=== PATIENT | female | born 1985 | race Caucasian/White ===

== ENCOUNTER 2024-12-18 20:39 | Inpatient (IN) ==
[2024-12-18 21:29] LABS: Hematocrit (blood only) 39.0 % (37.0-47.0); Hemoglobin 13.7 g/dl (12.0-16.0); Immature Granulocytes # (auto) 0.05 K/uL (0.01-0.20); Immature Granulocytes % (auto) 0.4 %; Mean Corpuscular Hemoglobin 38.7 pg (25.0-34.0); Mean Corpuscular Volume 110.2 fL (80.0-100.0); Platelet Count 281 K/uL (130-400); RDW Standard Deviation 83.7 fL (36.4-46.3); Red Blood Count 3.54 M/uL (4.20-5.40); White Blood Count 13.51 K/ul (4.8-10.8)
[2024-12-18 21:50] LABS: Appearance Urine Clear (Clear); Glucose Urine UA Negative (Negative)
[2024-12-18 21:59] LABS: Alanine Aminotransferase 41 U/L (7-52); Albumin Globulin Ratio 0.6 (0.9-2); Alkaline Phosphatase 264 U/L (34-104); Anion Gap 11 (3-11); Bilirubin,Total 1.8 mg/dl (0.2-1.0); Blood Urea Nitrogen < 2 mg/dl (6-23); Calcium 8.7 mg/dl (8.6-10.3); Carbon Dioxide 34 mmol/L (21-32); Chloride 89 mmol/L (98-107); Creatinine Clr Calc Pharmacy 117.4 ml/min; Globulin 4.5 gm/dl (2.5-4.0); Glucose 198 mg/dl (70-99(Fasting)); Lipase 18 U/L (11-82); Potassium 2.9 mmol/L (3.5-5.1); Sodium 134 mmol/L (136-145); Total Protein 7.3 gm/dl (6.0-8.3)
[2024-12-18] MEDS: OPTIRAY 320 100ml IV ONE (22:33)
[2024-12-18 22:36] LABS: Anisocytosis Present; Macrocytosis Present
[2024-12-18 22:46] LABS: Magnesium 1.7 mg/dl (1.7-2.4)
[2024-12-18] MEDS: POTASSIUM CHLORIDE / WTR 10 MEQ/100 ML PLCT IV SCH (22:46)
[2024-12-18] MEDS: SODIUM CHLORIDE 0.9% 1,000 ML IV ONE (22:46)
[2024-12-18] MEDS: POTASSIUM CHLORIDE CRTAB 20 MEQ TABCR PO STA (22:48)
[2024-12-18] MEDS: DICYCLOMINE HCL 10 MG/ML 2 ML AMP/VIAL IM ONE (22:48)
[2024-12-18] MEDS: FAMOTIDINE 20MG IV PUSH 20 MG/5 ML SYR IV STA (22:51)
[2024-12-18] MEDS: ONDANSETRON INJ 2 MG/ML 2 ML VIAL IV STA (22:59)
--- NOTE | 2024-12-18 23:09 | Emergency Department Note ---
History of Present Illness General Chief complaint: Abdominal Pain Stated complaint: ABD PAIN, DISCOMFORT Time Seen by Provider: 12/18/24 21:56 History of Present Illness Maximum Pain Intensity: 8 This 39-year-old female presents to the ER for abdominal pain, diarrhea and bloody diarrhea. Patient's been seen at other ERs with no clear etiology for her symptoms. Patient denies chest pain, fever, chills, cough, congestion, flulike illness. She is on well water. Patient smokes and drinks alcohol. No history of withdrawal symptoms. Home Medications Medication Instructions Recorded Confirmed Type dextroamphetamine-amphetamine 30 30 mg PO BID 12/18/24 12/18/24 History mg tablet esomeprazole magnesium 40 mg 40 mg PO DAILYBB 12/18/24 12/18/24 History capsule,delayed release ondansetron 4 mg disintegrating 4 mg PO Q8H PRN Nausea 12/18/24 12/18/24 History tablet spironolactone 25 mg tablet 25 mg PO QDD 12/18/24 12/18/24 History Allergies Allergy/AdvReac Type Severity Reaction Status Date / Time morphine Allergy Severe SHORT OF Verified 12/18/24 23:11 BREATH/HIVES latex Allergy Intermediate SKIN Verified 12/18/24 23:11 IRRITATION/RASH azathioprine [From Imuran] AdvReac Severe CAUSED Verified 12/18/24 23:13 PANCREATITIS Past Med/Surg History Problem List (Updated 12/18/24 @ 23:57 by Irlanda Sevilla PA-C) Hypokalemia (Acute) Bloody diarrhea (Acute) Abdominal ascites (Acute) Abdominal pain, acute (Acute) Social History Smoking Status: Current every day smoker Preferred Language: Danish Feels Safe at Home: Yes Review of Systems A total of 10 systems reviewed and were otherwise negative Physical Exam Vital Signs Vital Signs - 24 hr 12/18/24 20:45 12/18/24 21:53 12/18/24 22:00 Temperature 36.5 C Temperature Source Temporal Artery Scan Pulse Rate 123 H 121 H Pulse Rate [Apical] 125 H Pulse Rhythm [Apical] Regular Pulse Strength [Apical] Normal Respiratory Rate 18 28 H 21 Respiratory Effort / Characteristics Non-Labored Spontaneous Non-Labored Spontaneous Respiratory Depth Normal Normal Respiratory Pattern Regular Blood Pressure 141/85 H 132/98 Blood Pressure [Right Arm] 130/93 Blood Pressure Mean 103 110 Blood Pressure Mean [Right Arm] 105 Pulse Oximetry 99 98 96 Oxygen Delivery Method Room Air Room Air Sepsis Recent Fever Within 48 Hours No Sepsis New/Unexplained Change in Mental Status No Sepsis Action Taken by Nursing No Action Required 12/18/24 22:06 12/18/24 22:24 12/18/24 23:06 Temperature Temperature Source Pulse Rate 119 H 109 H 105 H Pulse Rate [Apical] Pulse Rhythm [Apical] Pulse Strength [Apical] Respiratory Rate 18 21 Respiratory Effort / Characteristics Respiratory Depth Respiratory Pattern Blood Pressure 129/84 Blood Pressure [Right Arm] Blood Pressure Mean 99 Blood Pressure Mean [Right Arm] Pulse Oximetry 96 97 Oxygen Delivery Method Sepsis Recent Fever Within 48 Hours Sepsis New/Unexplained Change in Mental Status Sepsis Action Taken by Nursing 12/18/24 23:30 12/19/24 00:03 12/19/24 00:30 Temperature Temperature Source Pulse Rate 105 H 111 H 100 H Pulse Rate [Apical] Pulse Rhythm [Apical] Pulse Strength [Apical] Respiratory Rate 23 17 18 Respiratory Effort / Characteristics Respiratory Depth Respiratory Pattern Blood Pressure 126/87 111/88 Blood Pressure [Right Arm] Blood Pressure Mean 100 95 Blood Pressure Mean [Right Arm] Pulse Oximetry 97 98 95 Oxygen Delivery Method Sepsis Recent Fever Within 48 Hours Sepsis New/Unexplained Change in Mental Status Sepsis Action Taken by Nursing 12/19/24 01:00 Temperature Temperature Source Pulse Rate 112 H Pulse Rate [Apical] Pulse Rhythm [Apical] Pulse Strength [Apical] Respiratory Rate 22 Respiratory Effort / Characteristics Respiratory Depth Respiratory Pattern Blood Pressure 123/88 Blood Pressure [Right Arm] Blood Pressure Mean 99 Blood Pressure Mean [Right Arm] Pulse Oximetry 94 Oxygen Delivery Method Sepsis Recent Fever Within 48 Hours Sepsis New/Unexplained Change in Mental Status Sepsis Action Taken by Nursing VITALS: Vitals are noted on the nurse's note and reviewed by myself. Vital signs stable. GENERAL: Pleasant female with partner present, in no acute distress, nondiaphoretic, well-developed well-nourished. SKIN: Capillary reflex less than 2 seconds. HEENT: Normocephalic. PERRLA. EOMI. Nares patent. Mucous membranes moist. Neck is supple without nuchal rigidity. HEART: Regular rate and rhythm LUNGS: Clear to auscultation bilaterally without wheezes, rales or rhonchi. No retractions or accessory muscle use. ABDOMEN: Positive bowel sounds x 4. Normal tympanic percussion. Soft, distended with positive fluid wave tender to palpation diffusely, without masses or organomegaly. Alvarez sign negative. No guarding or rebound tenderness. no CVA tenderness MUSCULOSKELETAL: No gross musculoskeletal defects. NEURO: Patient was alert and oriented to person place and time. No focal neurological deficits. Course Administered Medications Albumin Human (Albumin 25%) 25 gm in 100 mls @ 50 mls/hr IV ONE ONE Stop: 12/19/24 02:08 Last Admin: 12/19/24 00:42 Dose: 50 mls/hr Documented By: CAROL Magnesium Sulfate/Dextrose (Magnesium Sulfate / D5w) 1 gm in 100 mls @ 50 mls/hr IV Q2H MARTITA Stop: 12/19/24 04:14 Last Admin: 12/19/24 00:41 Dose: 50 mls/hr Documented By: CAROL Discontinued Medications Dicyclomine HCl (Dicyclomine Hcl 10 Mg/Ml 2 Ml Amp/Vial) 20 mg IM NOW ONE Stop: 12/18/24 22:35 Last Admin: 12/18/24 22:48 Dose: 20 mg Documented By: CAROL Fentanyl Citrate (Fentanyl Citrate Pf 100 Mcg/2 Ml Vial) 50 mcg IV NOW STA Stop: 12/18/24 23:56 Last Admin: 12/19/24 00:06 Dose: 50 mcg Documented By: CAROL Potassium Chloride (K Daniel / Wtr) 10 meq in 100 mls @ 100 mls/hr IV Q1H MARTITA Stop: 12/18/24 23:59 Last Admin: 12/19/24 00:41 Dose: 100 mls/hr Documented By: Infusion: 12/18/24 23:53 Dose: Infused Documented By: Admin: 12/18/24 22:46 Dose: 100 mls/hr Documented By: CAROL Sodium Chloride (Nss) 1,000 mls @ 999 mls/hr IV .Q1H1M ONE Stop: 12/18/24 23:00 Last Infusion: 12/18/24 23:53 Dose: Infused Documented By: Admin: 12/18/24 22:46 Dose: 999 mls/hr Documented By: CAROL Famotidine (Pepcid 20mg Iv Push) 20 mg in 5 mls @ 2.5 mls/min IV NOW STA Stop: 12/18/24 22:35 Last Admin: 12/18/24 22:51 Dose: 2.5 mls/min Documented By: CAROL Ceftriaxone Sodium (Rocephin) 2,000 mg in 50 mls @ 100 mls/hr IV NOW STA Stop: 12/18/24 23:40 Last Infusion: 12/19/24 00:53 Dose: Infused Documented By: Admin: 12/18/24 23:57 Dose: 100 mls/hr Documented By: JO Ioversol (Optiray 320 100ml) 93 ml IV ONCE ONE Stop: 12/18/24 22:34 Last Admin: 12/18/24 22:33 Dose: 93 ml Documented By: TEQUILA Ondansetron HCl (Ondansetron Inj 2 Mg/Ml 2 Ml Vial) 4 mg IV NOW STA Stop: 12/18/24 22:35 Last Admin: 12/18/24 22:59 Dose: 4 mg Documented By: CAROL Potassium Chloride (Potassium Chloride Crtab 20 Meq Tabcr) 40 meq PO NOW STA Stop: 12/18/24 22:01 Last Admin: 12/18/24 22:48 Dose: 40 meq Documented By: CAROL Medical Decision Making Medical Records Attestation: I reviewed the patient's medical records. Home Medications Current Medication List: was personally reviewed by me Laboratory Data Attestation: I reviewed the patient's lab results. 12/18/24 21:05 12/18/24 21:05 Lab Results 12/18/24 12/18/24 12/18/24 Range/Units 21:05 21:06 23:49 WBC 13.51 H (4.8-10.8) K/ul RBC 3.54 L (4.20-5.40) M/uL Hgb 13.7 (12.0-16.0) g/dl Hct 39.0 (37.0-47.0) % MCV 110.2 H (80.0-100.0) fL MCH 38.7 H (25.0-34.0) pg MCHC 35.1 (32.0-36.0) g/dL RDW Std Deviation 83.7 H (36.4-46.3) fL RDW Coeff of Amanda 20.6 H (11.5-14.5) % Plt Count 281 (130-400) K/uL MPV 9.9 (9.4-12.4) fL Immature Gran % (Auto) 0.4 % Neut % (Auto) 72.0 % Lymph % (Auto) 18.8 % Dewey % (Auto) 7.6 % Eos % (Auto) 0.7 % Baso % (Auto) 0.5 % Neut # (Auto) 9.72 H (1.40-6.50) K/uL Lymph # (Auto) 2.54 (1.20-3.40) K/uL Dewey # (Auto) 1.03 H (0.11-0.59) K/uL Eos # (Auto) 0.10 (0.00-0.50) K/uL Baso # (Auto) 0.07 (0.00-0.20) K/uL Immature Gran # (Auto) 0.05 (0.01-0.20) K/uL Anisocytosis Present Macrocytosis Present PT 12.8 H (9.0-12.0) Seconds INR 1.2 H (0.9-1.1) Sodium 134 L (136-145) mmol/L Potassium 2.9 L (3.5-5.1) mmol/L Chloride 89 L (98-107) mmol/L Carbon Dioxide 34 H (21-32) mmol/L Anion Gap 11 (3-11) BUN < 2 L (6-23) mg/dl Creatinine 0.55 L (0.6-1.2) mg/dl Est Cr Clr Drug Dosing 117.4 ml/min eGFR 118.76 BUN/Creatinine Ratio TNP Glucose 198 H (70-99(Fasting)) mg/dl Lactate 2.1 H* (0.4-2.0) mmol/L Calcium 8.7 (8.6-10.3) mg/dl Magnesium 1.7 (1.7-2.4) mg/dl Total Bilirubin 1.8 H (0.2-1.0) mg/dl AST 125 H (13-39) U/L ALT 41 (7-52) U/L Alkaline Phosphatase 264 H (34-104) U/L Total Protein 7.3 (6.0-8.3) gm/dl Albumin 2.8 L (3.4-5.0) gm/dl Globulin 4.5 H (2.5-4.0) gm/dl Albumin/Globulin Ratio 0.6 L (0.9-2) Lipase 18 (11-82) U/L Urine Color Yellow Urine Appearance Clear (Clear) Urine pH 6.0 (4.5-7.5) Ur Specific [place] <= 1.005 (1.000-1.030) Urine Protein Negative (Negative) Urine Glucose (UA) Negative (Negative) Urine Ketones Negative (Negative) Urine Blood Negative (Negative) Urine Nitrite Negative (Negative) Urine Bilirubin Negative (Negative) Urine Urobilinogen Negative (Negative) Ur Leukocyte Esterase Negative (Negative) POC Ur Test NEG (NEG) Urine Comment Ethyl Alcohol mg/dL < 10.0 (<10.0) mg/dl Imaging Data Attestation: I personally reviewed and interpreted this imaging study as follows: Radiologist's Impression: Abdomen/Pelvis CT 12/18/24 21:52 Exam(s): CT ABDOMEN + PELVIS With Contrast IV Amt: 93 cc opti 320 EXAM: CT Abdomen and Pelvis With Intravenous Contrast CLINICAL HISTORY: Reason for exam: abd pain; bloating; N/V/D. TECHNIQUE: Axial computed tomography images of the abdomen and pelvis with intravenous contrast. Automated exposure control was utilized for the study. A dose lowering technique was utilized adhering to the principles of ALARA. CONTRAST: Patient received 93 cc opti 320 of IV contrast COMPARISON: No relevant prior studies available. FINDINGS: Lung bases: No consolidation. ABDOMEN: Liver: The liver is enlarged, inhomogeneous and lobulated.. Gallbladder and bile ducts: Gallbladder is distended. No calcified stones. No ductal dilation. Pancreas: No mass. No ductal dilation. Spleen: No splenomegaly. Adrenals: No mass. Kidneys and ureters: No solid mass. No hydronephrosis. Stomach and bowel: There is a small hiatal hernia. The stomach is relatively decompressed. There is air and stool noted in the colon.. PELVIS: Appendix: The appendix is not visualized.. Bladder: Urinary bladder is distended. No bladder calculi are seen.. Reproductive: There is a 3 cm lucency in the left adnexa. ABDOMEN and PELVIS: Intraperitoneal space: No free air. There is a large amount of free fluid in the abdomen and pelvis.. Bones/joints: There are mild degenerative changes in the spine.. Soft tissues: Unremarkable. Vasculature: No abdominal aortic aneurysm. Lymph nodes: No enlarged lymph nodes. IMPRESSION: There is a large amount of ascites present. Liver is enlarged, inhomogeneous and lobulated. This may represent cirrhotic changes. Underlying lesions cannot be excluded on this exam. Further evaluation may be possible with the use of a nonemergent contrast- enhanced MRI. Gallbladder is distended. No calcified gallstones are seen. There is a small hiatal hernia. There is a possible 3 cm left adnexal cyst. Electronically signed by: Tang Cheatham MD 12/18/24 23:30 PM MDM Narrative Prior records/ancillary studies reviewed. Triage Nursing notes reviewed. Additional history obtained from family. The patient's history was concerning for abdominal pain. Differential diagnosis: Etiologies such as SBP, appendicitis, diverticulitis, PUD, biliary pathology, UTI, pancreatitis, obstruction, mesenteric ischemia, aortic pathology, infections, inflammatory bowel disease, renal colic, as well as others were entertained. Physical examination findings: As above. ER treatment provided: An order was placed for continuous cardiac monitoring. The monitor shows a rate of 60-100 with a sinus rhythm per my Independent interpretation. IV fluids, Zofran, Pepcid, Bentyl were ordered Potassium was replaced orally and intravenously Rocephin was ordered for possible SBP as patient was quite tender On reassessment the patient felt better. Diagnostics interpreted by me: ECG: Ordered for low K EKG: Poor baseline, probable U wave in V1 V2, QTc 520, rate of 106. Impression sinus tachycardia U waves in the anterior septal leads independently interpreted by myself The labs Independently Interpreted by myself revealed hypokalemia. Normal magnesium Negative urine, negative hCG Mild leukocytosis Blood cultures pending Imaging studies: Imaging was reviewed and read by radiology Consultation: A consultation was placed with the hospitalist. The case was discussed and diagnostics were reviewed. The patient was evaluated in the ER for further treatment. Exam and history seem consistent with abdominal pain with ascites and an alcoholic with concerns for possible SBP. Patient is quite tender on exam. She did have a white count. She also had bloody diarrhea but has not provided a stool specimen. Patient has never been here before she normally goes to other hospitals near the [facility]. Medicine was consulted and the case was discussed. She will be evaluated for admission.By the evaluation outlined above emergent etiologies such as appendicitis, diverticulitis, PUD, UTI, pancreatitis, obstruction, mesenteric ischemia, aortic pathology, inflammatory bowel disease, renal colic, as well as others were deemed relatively unlikely. The pt informed about the findings as listed above. All questions were answered and pleased with the treatment. The chart was completed utilizing [employer] voice recognition software. Grammatical errors, random word insertions, pronoun errors, and incomplete sentences are an occassional consequence of this system due to software limitations, ambient noise, and hardware issues. Any formal questions or concerns about the content, text, or information contained within the body of this dictation should be directly addressed to the physician assistant store manager operations for clarification. Impression & Plan Abdominal pain, acute, Abdominal ascites, Bloody diarrhea, Hypokalemia Discharge Plan Visit Data Chief Complaint: Abdominal Pain Stated Complaint: ABD PAIN, DISCOMFORT ED Provider: Miriam Kurtz ED Midlevel Provider: Irlanda Sevilla Discharge Problem: Abdominal pain, acute, Abdominal ascites, Bloody diarrhea, Hypokalemia Patient Disposition: Admitted As Inpatient Condition: Good Forms Stand Alone Forms: [employer] Prescriptions Prescriptions: No Action spironolactone 25 mg tablet 25 mg PO QDD Rx Instructions: TAKE WITH FOOD dextroamphetamine-amphetamine 30 mg tablet 30 mg PO BID esomeprazole magnesium 40 mg capsule,delayed release(DR/EC) 40 mg PO DAILYBB ondansetron 4 mg tablet,disintegrating 4 mg PO Q8H PRN (Reason: Nausea) Referrals Referrals: PCP,NO [Physician] -
--- NOTE | 2024-12-18 23:30 | CT Scan Report ---
Exam(s): CT ABDOMEN + PELVIS With Contrast IV Amt: 93 cc opti 320 EXAM: CT Abdomen and Pelvis With Intravenous Contrast CLINICAL HISTORY: Reason for exam: abd pain; bloating; N/V/D. TECHNIQUE: Axial computed tomography images of the abdomen and pelvis with intravenous contrast. Automated exposure control was utilized for the study. A dose lowering technique was utilized adhering to the principles of ALARA. CONTRAST: Patient received 93 cc opti 320 of IV contrast COMPARISON: No relevant prior studies available. FINDINGS: Lung bases: No consolidation. ABDOMEN: Liver: The liver is enlarged, inhomogeneous and lobulated.. Gallbladder and bile ducts: Gallbladder is distended. No calcified stones. No ductal dilation. Pancreas: No mass. No ductal dilation. Spleen: No splenomegaly. Adrenals: No mass. Kidneys and ureters: No solid mass. No hydronephrosis. Stomach and bowel: There is a small hiatal hernia. The stomach is relatively decompressed. There is air and stool noted in the colon.. PELVIS: Appendix: The appendix is not visualized.. Bladder: Urinary bladder is distended. No bladder calculi are seen.. Reproductive: There is a 3 cm lucency in the left adnexa. ABDOMEN and PELVIS: Intraperitoneal space: No free air. There is a large amount of free fluid in the abdomen and pelvis.. Bones/joints: There are mild degenerative changes in the spine.. Soft tissues: Unremarkable. Vasculature: No abdominal aortic aneurysm. Lymph nodes: No enlarged lymph nodes. IMPRESSION: There is a large amount of ascites present. Liver is enlarged, inhomogeneous and lobulated. This may represent cirrhotic changes. Underlying lesions cannot be excluded on this exam. Further evaluation may be possible with the use of a nonemergent contrast- enhanced MRI. Gallbladder is distended. No calcified gallstones are seen. There is a small hiatal hernia. There is a possible 3 cm left adnexal cyst. Electronically signed by: Tang Cheatham MD 12/18/24 23:30 PM
[2024-12-18] MEDS: cefTRIAXone SODIUM 2,000 MG/50 ML BAG IV STA (23:57)
[2024-12-19 00:27] LABS: INR 1.2 (0.9-1.1); Prothrombin Time 12.8 Seconds (9.0-12.0)
[2024-12-19] MEDS: MAGNESIUM SULFATE / D5W 1 GM/100 ML BAG IV SCH (00:41)
[2024-12-19] MEDS: ALBUMIN 25% 25 GM/100 ML VIAL IV ONE (00:42)
--- NOTE | 2024-12-19 02:08 | History & Physical Report ---
Date of Service December 19, 2024 Assessment & Plan (1) Abdominal pain: Plan: Assessment and plan below following discussion of case with ED provider and reviewing patient history/pertinent normal/abnormal diagnostic test results. Abdominal pain Multifactorial SBP, possible sepsis, history alcoholic cirrhosis with some decompensation bloody diarrhea rule out C. difficile hx Crohn's colitis, has not been seen on follow-up by [facility] specialist this year ADHD, mood disorder, at baseline alcohol abuse Hypokalemia secondary to diarrhea Hyperglycemia rule out DM Incidental finding of left adnexal cyst ongoing tobacco abuse Admit to PCU given potential for alcohol withdrawal and possible need for phenobarbital protocol SUDHEER S, DT precautions CS, ceftriaxone, albumin for possible SBP Monitor lactic acid response to albumin Therapeutic and diagnostic paracentesis in a.m. Stool cultures, stool C. difficile Follow H&H, transfuse PRBC if hemoglobin less than 7 and or for symptomatic anemia GI consult re: decompensated cirrhosis, LGIB Replace potassium Check hemoglobin A1c Outpatient [employer] follow-up for left adnexal cyst Nicotine patch as needed DVT prophylaxis. SCDs Re: GI bleed Full code Text document was generated using [employer] voice recognition software. It may contain grammatical or spelling errors. Kindly contact undersigned for clarification of any documentation item in question. History of Present Illness Chief Complaint: Worsening abdominal pain, bloody diarrhea Primary Care Provider: Monserrat Viera PA-C History obtained from patient and records. Medical history significant for Crohn's colitis, alcoholic cirrhosis, pancreatitis, ADHD, mood disorder, alcohol abuse, ongoing tobacco abuse. Recent confinement last month at [facility] for ascites and GI bleed. EGD showed nonbleeding gastric ulcer and portal hypertensive gastropathy. Incomplete paracentesis as per patient. Patient discharged on spironolactone. Patient noncompliant with Lasix prescription due to low potassium concerns as per last PCP note. Patient consulted [facility] ER 2 weeks ago for persistent abdominal pain/distention following discharge from [facility]. CT abdomen pelvis showed enteritis, fatty liver, moderate ascites, and gallbladder distention. Questionable mild thickening of ascending colonic wall. Patient directed to [facility] for evaluation to rule out cholecystitis due to in availability of ultrasound at [facility]. Ultrasound showed cirrhotic liver with small volume ascites. No findings suggestive of acute cholecystitis. Patient discharged home. Worsening achy abdominal discomfort and distention since last week. No fever, no chills. Bloody diarrhea symptoms with bilious emesis. Antibiotic Rx during confinements at [facility] hospital as per patient. Patient denies chest pain, SOB. No OTC NSAID intake. IV ceftriaxone administered at the ER. Medical History as above 2021 colonoscopy active colitis descending colon and sigmoid colon consistent with Crohn's disease. Surgical History : Appendectomy, oviduct fulguration, endometrial ablation, ectopic removal, oophorectomy, tonsillectomy, Family History : Asthma, RA Personal/Social history : Half pack daily, alcohol abuse as per records, currently unemployed Allergies Allergy/AdvReac Type Severity Reaction Status Date / Time morphine Allergy Severe SHORT OF Verified 12/18/24 23:11 BREATH/HIVES latex Allergy Intermediate SKIN Verified 12/18/24 23:11 IRRITATION/RASH azathioprine [From Imuran] AdvReac Severe CAUSED Verified 12/18/24 23:13 PANCREATITIS Home Medications Medication Instructions Recorded Confirmed Type dextroamphetamine-amphetamine 30 30 mg PO BID 12/18/24 12/18/24 History mg tablet esomeprazole magnesium 40 mg 40 mg PO DAILYBB 12/18/24 12/18/24 History capsule,delayed release ondansetron 4 mg disintegrating 4 mg PO Q8H PRN Nausea 12/18/24 12/18/24 History tablet spironolactone 25 mg tablet 25 mg PO QDD 12/18/24 12/18/24 History Past Med/Surg History Problem List (Updated 12/19/24 @ 09:10 by BEAN Smith) Crohn disease Cirrhosis Abdominal pain Hypokalemia (Acute) Bloody diarrhea (Acute) Abdominal ascites (Acute) Abdominal pain, acute (Acute) Social History Smoking Status: Current every day smoker Preferred Language: Vincentian Feels Safe at Home: Yes Review of Systems Review of Systems: As per HPI, all other systems reviewed and negative Physical Exam Physical Exam: GENERAL: uncomfortable, slightly anxious, looks older than stated age, no respiratory distress SKIN: Normal color, warm HEENT: [place] palpebral conjunctivae, no ptosis, dry buccal mucosa NECK : Supple, no tenderness CHEST : Decreased breath sounds, no tenderness HEART : Tachycardic, no obvious murmurs ABDOMEN: Marked abdominal distention, central abdominal tenderness EXTREMITIES : No LE swelling/tenderness, palpable pulses, no other conspicuous deformities noted NEUROLOGIC : Coherent, no facial asymmetry, no other gross focality Results & Data Results & Data Vital Signs (Past 12 Hours) Vital Signs Temp Pulse Pulse Resp BP BP Pulse Ox 12/19/24 01:56 108 H 12/19/24 01:42 108 H 23 102/84 95 12/19/24 01:00 108 H 18 123/88 97 12/19/24 01:00 112 H 22 123/88 94 12/19/24 00:30 100 H 18 111/88 95 12/19/24 00:03 111 H 17 126/87 98 12/18/24 23:30 105 H 23 97 12/18/24 23:06 105 H 21 97 12/18/24 22:24 109 H 18 129/84 96 12/18/24 22:06 119 H 12/18/24 22:00 121 H 21 132/98 96 12/18/24 21:53 125 H 28 H 130/93 98 12/18/24 20:45 36.5 C 123 H 18 141/85 H 99 O2 Del Method 12/19/24 01:56 12/19/24 01:42 12/19/24 01:00 12/19/24 01:00 12/19/24 00:30 12/19/24 00:03 12/18/24 23:30 12/18/24 23:06 12/18/24 22:24 12/18/24 22:06 12/18/24 22:00 12/18/24 21:53 Room Air 12/18/24 20:45 Room Air Laboratory Results Laboratory Results WBC 13.51 K/ul (4.8-10.8) H 12/18/24 21:05 RBC 3.54 M/uL (4.20-5.40) L 12/18/24 21:05 Hgb 13.7 g/dl (12.0-16.0) 12/18/24 21:05 Hct 39.0 % (37.0-47.0) 12/18/24 21:05 MCV 110.2 fL (80.0-100.0) H 12/18/24 21:05 MCH 38.7 pg (25.0-34.0) H 12/18/24 21:05 MCHC 35.1 g/dL (32.0-36.0) 12/18/24 21:05 RDW Std Deviation 83.7 fL (36.4-46.3) H 12/18/24 21:05 RDW Coeff of Amanda 20.6 % (11.5-14.5) H 12/18/24 21:05 Plt Count 281 K/uL (130-400) 12/18/24 21:05 MPV 9.9 fL (9.4-12.4) 12/18/24 21:05 Immature Gran % (Auto) 0.4 % 12/18/24 21:05 Neut % (Auto) 72.0 % 12/18/24 21:05 Lymph % (Auto) 18.8 % 12/18/24 21:05 [place] % (Auto) 7.6 % 12/18/24 21:05 Eos % (Auto) 0.7 % 12/18/24 21:05 Baso % (Auto) 0.5 % 12/18/24 21:05 Neut # (Auto) 9.72 K/uL (1.40-6.50) H 12/18/24 21:05 Lymph # (Auto) 2.54 K/uL (1.20-3.40) 12/18/24 21:05 [place] # (Auto) 1.03 K/uL (0.11-0.59) H 12/18/24 21:05 Eos # (Auto) 0.10 K/uL (0.00-0.50) 12/18/24 21:05 Baso # (Auto) 0.07 K/uL (0.00-0.20) 12/18/24 21:05 Immature Gran # (Auto) 0.05 K/uL (0.01-0.20) 12/18/24 21:05 Anisocytosis Present 12/18/24 21:05 Macrocytosis Present 12/18/24 21:05 PT 12.8 Seconds (9.0-12.0) H 12/18/24 21:05 INR 1.2 (0.9-1.1) H 12/18/24 21:05 Sodium 134 mmol/L (136-145) L 12/18/24 21:05 Potassium 2.9 mmol/L (3.5-5.1) L 12/18/24 21:05 Chloride 89 mmol/L (98-107) L 12/18/24 21:05 Carbon Dioxide 34 mmol/L (21-32) H 12/18/24 21:05 Anion Gap 11 (3-11) 12/18/24 21:05 BUN < 2 mg/dl (6-23) L 12/18/24 21:05 Creatinine 0.55 mg/dl (0.6-1.2) L 12/18/24 21:05 Est Cr Clr Drug Dosing 117.4 ml/min 12/18/24 21:05 eGFR 118.76 12/18/24 21:05 BUN/Creatinine Ratio TNP 12/18/24 21:05 Glucose 198 mg/dl (70-99(Fasting)) H 12/18/24 21:05 Lactate 2.1 mmol/L (0.4-2.0) H* 12/18/24 23:49 Calcium 8.7 mg/dl (8.6-10.3) 12/18/24 21:05 Magnesium 1.7 mg/dl (1.7-2.4) 12/18/24 21:05 Total Bilirubin 1.8 mg/dl (0.2-1.0) H 12/18/24 21:05 AST 125 U/L (13-39) H 12/18/24 21:05 ALT 41 U/L (7-52) 12/18/24 21:05 Alkaline Phosphatase 264 U/L (34-104) H 12/18/24 21:05 Total Protein 7.3 gm/dl (6.0-8.3) 12/18/24 21:05 Albumin 2.8 gm/dl (3.4-5.0) L 12/18/24 21:05 Globulin 4.5 gm/dl (2.5-4.0) H 12/18/24 21:05 Albumin/Globulin Ratio 0.6 (0.9-2) L 12/18/24 21:05 Lipase 18 U/L (11-82) 12/18/24 21:05 Urine Color Yellow 12/18/24 21:05 Urine Appearance Clear (Clear) 12/18/24 21:05 Urine pH 6.0 (4.5-7.5) 12/18/24 21:05 Ur Specific [place] <= 1.005 (1.000-1.030) 12/18/24 21:05 Urine Protein Negative (Negative) 12/18/24 21:05 Urine Glucose (UA) Negative (Negative) 12/18/24 21:05 Urine Ketones Negative (Negative) 12/18/24 21:05 Urine Blood Negative (Negative) 12/18/24 21:05 Urine Nitrite Negative (Negative) 12/18/24 21:05 Urine Bilirubin Negative (Negative) 12/18/24 21:05 Urine Urobilinogen Negative (Negative) 12/18/24 21:05 Ur Leukocyte Esterase Negative (Negative) 12/18/24 21:05 POC Ur Test NEG (NEG) 12/18/24 21:06 Urine Comment 12/18/24 21:05 Ethyl Alcohol mg/dL < 10.0 mg/dl (<10.0) 12/18/24 23:49 Impressions Abdomen/Pelvis CT 12/18/24 21:52 Exam(s): CT ABDOMEN + PELVIS With Contrast IV Amt: 93 cc opti 320 EXAM: CT Abdomen and Pelvis With Intravenous Contrast CLINICAL HISTORY: Reason for exam: abd pain; bloating; N/V/D. TECHNIQUE: Axial computed tomography images of the abdomen and pelvis with intravenous contrast. Automated exposure control was utilized for the study. A dose lowering technique was utilized adhering to the principles of ALARA. CONTRAST: Patient received 93 cc opti 320 of IV contrast COMPARISON: No relevant prior studies available. FINDINGS: Lung bases: No consolidation. ABDOMEN: Liver: The liver is enlarged, inhomogeneous and lobulated.. Gallbladder and bile ducts: Gallbladder is distended. No calcified stones. No ductal dilation. Pancreas: No mass. No ductal dilation. Spleen: No splenomegaly. Adrenals: No mass. Kidneys and ureters: No solid mass. No hydronephrosis. Stomach and bowel: There is a small hiatal hernia. The stomach is relatively decompressed. There is air and stool noted in the colon.. PELVIS: Appendix: The appendix is not visualized.. Bladder: Urinary bladder is distended. No bladder calculi are seen.. Reproductive: There is a 3 cm lucency in the left adnexa. ABDOMEN and PELVIS: Intraperitoneal space: No free air. There is a large amount of free fluid in the abdomen and pelvis.. Bones/joints: There are mild degenerative changes in the spine.. Soft tissues: Unremarkable. Vasculature: No abdominal aortic aneurysm. Lymph nodes: No enlarged lymph nodes. IMPRESSION: There is a large amount of ascites present. Liver is enlarged, inhomogeneous and lobulated. This may represent cirrhotic changes. Underlying lesions cannot be excluded on this exam. Further evaluation may be possible with the use of a nonemergent contrast- enhanced MRI. Gallbladder is distended. No calcified gallstones are seen. There is a small hiatal hernia. There is a possible 3 cm left adnexal cyst. Electronically signed by: Tang Cheatham MD 12/18/24 23:30 PM
[2024-12-19] MEDS ORDERED: ACETAMINOPHEN 500 MG TAB PO PRN (02:43)
[2024-12-19] MEDS ORDERED: PROMETHAZINE 6.25 MG/50.25 ML BAG IV PRN (02:43)
[2024-12-19] MEDS: THIAMINE HCL 100 MG in SYRINGE 9 ML IV STA (02:54)
[2024-12-19] MEDS: FUROSEMIDE INJ 20 MG/2 ML VIAL IV ONE (03:02)
[2024-12-19 05:24] LABS: INR 1.3 (0.9-1.1); Prothrombin Time 13.5 Seconds (9.0-12.0)
[2024-12-19 05:26] LABS: Alanine Aminotransferase 28 U/L (7-52); Albumin Globulin Ratio 0.8 (0.9-2); Alkaline Phosphatase 180 U/L (34-104); Anion Gap 9 (3-11); Bilirubin,Total 1.6 mg/dl (0.2-1.0); Blood Urea Nitrogen < 2 mg/dl (6-23); Calcium 8.0 mg/dl (8.6-10.3); Carbon Dioxide 35 mmol/L (21-32); Chloride 94 mmol/L (98-107); Creatinine Clr Calc Pharmacy 137.4 ml/min; Globulin 3.2 gm/dl (2.5-4.0); Glucose 95 mg/dl (70-99(Fasting)); Potassium 3.0 mmol/L (3.5-5.1); Sodium 138 mmol/L (136-145); Total Protein 5.9 gm/dl (6.0-8.3)
[2024-12-19 06:00] LABS: Hematocrit (blood only) 30.4 % (37.0-47.0); Hemoglobin 10.8 g/dl (12.0-16.0); Mean Corpuscular Hemoglobin 38.3 pg (25.0-34.0); Mean Corpuscular Volume 107.8 fL (80.0-100.0); Platelet Count 202 K/uL (130-400); RDW Standard Deviation 79.2 fL (36.4-46.3); Red Blood Count 2.82 M/uL (4.20-5.40); White Blood Count 10.51 K/ul (4.8-10.8)
[2024-12-19 06:33] LABS: Anisocytosis Present; Immature Granulocytes # (auto) 0.03 K/uL (0.01-0.20); Immature Granulocytes % (auto) 0.3 %; Polychromasia 1+; Target Cells 1+
--- NOTE | 2024-12-19 08:20 | Gastrointestinal Consultation ---
Date of Consultation December 19, 2024 Assessment & Plan (1) Cirrhosis: 39 year old female with history of Crohn's followed by [facility] GI, ETOH induced liver disease followed by [facility] Hepatology, ADHD, HTN, pancreatitis, depression, alcohol use disorder recently admitted at [facility] admitted through the ED w/ decompensated cirrhosis and LGIB. She endorses chronic abd pain, change in bowel habits in September w/ mucous in stools mixed w/ BRB. EGD in November w/ portal hypertensive gastropathy, small non-bleeding gastric ulcer. Colon in 2021 w/ evidence of crohn's disease w/ colonic involvement Cirrhosis - MELD 11 - Ascites - Diagnostic and therapeutic paracentesis - Follow fluid studies - Albumin 25% 25G before and after - Increase Aldactone 50 mg once daily - Monitor K - If able to introduce low dose Lasix again, recommend trial while hospitalized - Follow up with [facility] Hepatology - MELD labs every 6 months - ABD imaging w/ AFP every 6 months - EGD every 1-2 years - No ETOH - No NSAIDs - Avoid hepatotoxin - Low NA diet, less than 2G daily - Less than 2G acetaminophen containing products daily Crohn's disease, change in bowel habits, mucous in stools w/ rectal bleeding - Trend H&H - Check iron studies, ferritin - If deficient, start iron therapy - She was recently referred to an IBD specialist - Recommend stool PCR, c.diff - Fecal calprotectin - Has failed Mesalamine, Imuran, Humira, Avsola I spent a total of 60 minutes on the date of service in review of patient's record, and previously obtained information in person and appropriate medical visit, discussion and education of plan, with patient and/or caregiver, placing orders for tests/referral/procedures as medically necessary and documentation of pertinent clinical information in patient's medical records for their visit today. (2) Crohn disease: Supervising Physician Co-Signing Physician Notes 39 year old female with history of Crohn's followed by [facility] GI, ETOH induced liver disease followed by [facility] GI, ADHD, HTN, pancreatitis, depression, alcohol use disorder recently admitted at [facility] admitted through the ED w/ decompensated cirrhosis and LGIB. GI asked to evaluated. She notes generalized abdominal pain since September. Associated with change in bowel habits. She was evaluated by her [facility] GI team and referred to [facility]. Currently she is having 8-10 small frequent liquid in gas and mucoid stools. CTAP 2024: There is a large amount of ascites present. Liver is enlarged, inhomogeneous and lobulated. This may represent cirrhotic changes. Underlying lesions cannot be excluded on this exam. Further evaluation may be possible with the use of a nonemergent contrast- enhanced MRI. Gallbladder is distended. No calcified gallstones are seen. There is a small hiatal hernia. There is a possible 3 cm left adnexal cyst. Crohn's diagnosed in 2018. Previously on Mesalamine, Imuran ( stopped due to pancreatitis), Humira for 9 months ( stopped due to Ab) in 2020, Avsola caused problems with liver test and high blood [id number]. Last colonoscopy in 2021 w/ active disease. Has been treated periodically w/ steroids. She is not on any maintenance therapy. Mild to moderate Crohn's flare complicated by mucoid diarrhea frequency and some urgency. Unable to tolerate mesalamine Imuran and Humira and Avsola. Check stool cultures and tap ascites. As long as the cultures are negative, we can start a prednisone taper with 40 mg p.o. every morning prednisone History of Present Illness Reason for Consultation: LGIB, decompensated cirrhosis Requesting Physician: Desmond Mathis MD Attending Physician: Desmond Mathis MD History of Present Illness 39 year old female with history of Crohn's followed by [facility] GI, ETOH induced liver disease followed by [facility] GI, ADHD, HTN, pancreatitis, depression, alcohol use disorder recently admitted at [facility] admitted through the ED w/ decompensated cirrhosis and LGIB. GI asked to evaluated. She notes generalized abdominal pain since September. Associated with change in bowel habits. She was evaluated by her [facility] GI team and referred to [facility]. She notes abd pain is constant, unchanged. Notes that she typically would pass liquid, watery stool daily. In September, started w/ mucousy stools mixed w/ BRB. The blood will from time change the color of the toilet bowl water. No melena. She has chronic nausea. No vomiting. No NSAIDs Continued ETOH abuse HGB 10.8 PLT 202 INR 1.3 Tb 1.6 AST 86 ALT 28 ALKP 180 Lipase 18 CTAP 2024: There is a large amount of ascites present. Liver is enlarged, inhomogeneous and lobulated. This may represent cirrhotic changes. Underlying lesions cannot be excluded on this exam. Further evaluation may be possible with the use of a nonemergent contrast- enhanced MRI. Gallbladder is distended. No calcified gallstones are seen. There is a small hiatal hernia. There is a possible 3 cm left adnexal cyst. Crohn's diagnosed in 2019. Previously on Mesalamine, Imuran ( stopped due to pancreatitis), Humira for 9 months ( stopped due to Ab) in 2020, Avsola caused problems with liver test and high blood [id number]. Last colonoscopy in 2021 w/ active disease. Has been treated periodically w/ steroids. She is not on any maintenance therapy. 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 Remainder of serological work up including v iral and autoimmune causes are all negative. She recently had a diagnostic/therapeutic paracentesis 11/10/24: 1600 mL off. I do not have results of these fluid studies. She was prescribed Lasix (dose unclear) and Aldactone 25 mg daily. Recent EGD 11/10 w/ portal htn gastropathy, non-bleeding gastric ulcer. EGD 2024: Normal esophagus. - Portal hypertensive gastropathy. - Small non-bleeding gastric ulcer. Biopsied. - Normal examined duodenum. EGD 2023: Loose lower esophageal sphincter. - Modest amount of solid food (residue) in the stomach. - Gastritis. Biopsied. - Normal examined duodenum. Colonoscopy 2021: Segmental moderate inflammation was found in the sigmoid colon and in the descending colon secondary to Crohn's disease with colonic involvement. Biopsied. Colonoscopy 2019: The examined portion of the ileum was normal. Biopsied. - Moderate inflammation was found in the entire examined colon secondary to Crohn's disease with colonic involvement. Biopsied. Allergies Allergy/AdvReac Type Severity Reaction Status Date / Time morphine Allergy Severe SHORT OF Verified 12/18/24 23:11 BREATH/HIVES latex Allergy Intermediate SKIN Verified 12/18/24 23:11 IRRITATION/RASH azathioprine [From Imuran] AdvReac Severe CAUSED Verified 12/18/24 23:13 PANCREATITIS Home Medications Medication Instructions Recorded Confirmed Type dextroamphetamine-amphetamine 30 30 mg PO BID 12/18/24 12/18/24 History mg tablet esomeprazole magnesium 40 mg 40 mg PO DAILYBB 12/18/24 12/18/24 History capsule,delayed release ondansetron 4 mg disintegrating 4 mg PO Q8H PRN Nausea 12/18/24 12/18/24 History tablet spironolactone 25 mg tablet 25 mg PO QDD 12/18/24 12/18/24 History Patient History Social History Smoking Status: Current every day smoker Preferred Language: Thai Communication Ability: Effective Feels Safe at Home: Yes Assistive Devices: None Review of Systems Review of Systems: All other findings negative except as noted in HPI. Physical Exam Constitutional: WD/WN, vitals as above Respiratory: normal respiratory effort Cardiovascular: Rate/Rhythm: regular rate Gastrointestinal (Abdomen): Inspection/Auscultation: normal bowel sounds Skin: no rashes, warm and dry Results & Data Vital Signs (Past 12 Hours) Vital Signs Temp Pulse Pulse Resp BP BP Pulse Ox 12/19/24 07:24 109 H 18 116/81 94 12/19/24 07:08 105 H 12/19/24 03:24 94 12/19/24 03:00 112 H 14 112/82 98 12/19/24 02:30 116 H 22 132/86 96 12/19/24 02:00 108 H 22 127/86 97 12/19/24 01:56 108 H 12/19/24 01:42 108 H 23 102/84 95 12/19/24 01:00 108 H 18 123/88 97 12/19/24 01:00 112 H 22 123/88 94 12/19/24 00:30 100 H 18 111/88 95 12/19/24 00:03 111 H 17 126/87 98 12/18/24 23:30 105 H 23 97 12/18/24 23:06 105 H 21 97 12/18/24 22:24 109 H 18 129/84 96 12/18/24 22:06 119 H 12/18/24 22:00 121 H 21 132/98 96 12/18/24 21:53 125 H 28 H 130/93 98 12/18/24 20:45 97.7 F 123 H 18 141/85 H 99 O2 Del Method 12/19/24 07:24 Room Air 12/19/24 07:08 12/19/24 03:24 Room Air 12/19/24 03:00 12/19/24 02:30 12/19/24 02:00 12/19/24 01:56 12/19/24 01:42 12/19/24 01:00 12/19/24 01:00 12/19/24 00:30 12/19/24 00:03 12/18/24 23:30 12/18/24 23:06 12/18/24 22:24 12/18/24 22:06 12/18/24 22:00 12/18/24 21:53 Room Air 12/18/24 20:45 Room Air Laboratory Results 12/19/24 12/19/24 12/18/24 Range/Units 04:37 01:54 23:49 WBC 10.51 (4.8-10.8) K/ul RBC 2.82 L (4.20-5.40) M/uL Hgb 10.8 L D (12.0-16.0) g/dl Hct 30.4 L (37.0-47.0) % MCV 107.8 H (80.0-100.0) fL MCH 38.3 H (25.0-34.0) pg MCHC 35.5 (32.0-36.0) g/dL RDW Std Deviation 79.2 H (36.4-46.3) fL RDW Coeff of Amanda 20.4 H (11.5-14.5) % Plt Count 202 (130-400) K/uL MPV 9.8 (9.4-12.4) fL Immature Gran % (Auto) 0.3 % Neut % (Auto) 55.6 % Lymph % (Auto) 32.2 % [place] % (Auto) 10.0 % Eos % (Auto) 1.3 % Baso % (Auto) 0.6 % Neut # (Auto) 5.85 (1.40-6.50) K/uL Lymph # (Auto) 3.38 (1.20-3.40) K/uL [place] # (Auto) 1.05 H (0.11-0.59) K/uL Eos # (Auto) 0.14 (0.00-0.50) K/uL Baso # (Auto) 0.06 (0.00-0.20) K/uL Immature Gran # (Auto) 0.03 (0.01-0.20) K/uL Polychromasia 1+ Anisocytosis Present Macrocytosis Target Cells 1+ PT 13.5 H (9.0-12.0) Seconds INR 1.3 H (0.9-1.1) Sodium 138 (136-145) mmol/L Potassium 3.0 L (3.5-5.1) mmol/L Chloride 94 L (98-107) mmol/L Carbon Dioxide 35 H (21-32) mmol/L Anion Gap 9 (3-11) BUN < 2 L (6-23) mg/dl Creatinine 0.47 L (0.6-1.2) mg/dl Est Cr Clr Drug Dosing 137.4 ml/min eGFR 123.35 BUN/Creatinine Ratio TNP Glucose 95 (70-99(Fasting)) mg/dl Lactate 1.8 2.1 H* (0.4-2.0) mmol/L Calcium 8.0 L (8.6-10.3) mg/dl Magnesium (1.7-2.4) mg/dl Total Bilirubin 1.6 H (0.2-1.0) mg/dl AST 86 H (13-39) U/L ALT 28 (7-52) U/L Alkaline Phosphatase 180 H (34-104) U/L Total Protein 5.9 L (6.0-8.3) gm/dl Albumin 2.7 L (3.4-5.0) gm/dl Globulin 3.2 (2.5-4.0) gm/dl Albumin/Globulin Ratio 0.8 L (0.9-2) Lipase (11-82) U/L Urine Color Urine Appearance (Clear) Urine pH (4.5-7.5) Ur Specific [place] (1.000-1.030) Urine Protein (Negative) Urine Glucose (UA) (Negative) Urine Ketones (Negative) Urine Blood (Negative) Urine Nitrite (Negative) Urine Bilirubin (Negative) Urine Urobilinogen (Negative) Ur Leukocyte Esterase (Negative) POC Ur Test (NEG) Urine Comment Ethyl Alcohol mg/dL < 10.0 (<10.0) mg/dl Blood Type O Positive Antibody Screen NEGATIVE 12/18/24 12/18/24 Range/Units 21:06 21:05 WBC 13.51 H (4.8-10.8) K/ul RBC 3.54 L (4.20-5.40) M/uL Hgb 13.7 (12.0-16.0) g/dl Hct 39.0 (37.0-47.0) % MCV 110.2 H (80.0-100.0) fL MCH 38.7 H (25.0-34.0) pg MCHC 35.1 (32.0-36.0) g/dL RDW Std Deviation 83.7 H (36.4-46.3) fL RDW Coeff of Amanda 20.6 H (11.5-14.5) % Plt Count 281 (130-400) K/uL MPV 9.9 (9.4-12.4) fL Immature Gran % (Auto) 0.4 % Neut % (Auto) 72.0 % Lymph % (Auto) 18.8 % [place] % (Auto) 7.6 % Eos % (Auto) 0.7 % Baso % (Auto) 0.5 % Neut # (Auto) 9.72 H (1.40-6.50) K/uL Lymph # (Auto) 2.54 (1.20-3.40) K/uL [place] # (Auto) 1.03 H (0.11-0.59) K/uL Eos # (Auto) 0.10 (0.00-0.50) K/uL Baso # (Auto) 0.07 (0.00-0.20) K/uL Immature Gran # (Auto) 0.05 (0.01-0.20) K/uL Polychromasia Anisocytosis Present Macrocytosis Present Target Cells PT 12.8 H (9.0-12.0) Seconds INR 1.2 H (0.9-1.1) Sodium 134 L (136-145) mmol/L Potassium 2.9 L (3.5-5.1) mmol/L Chloride 89 L (98-107) mmol/L Carbon Dioxide 34 H (21-32) mmol/L Anion Gap 11 (3-11) BUN < 2 L (6-23) mg/dl Creatinine 0.55 L (0.6-1.2) mg/dl Est Cr Clr Drug Dosing 117.4 ml/min eGFR 118.76 BUN/Creatinine Ratio TNP Glucose 198 H (70-99(Fasting)) mg/dl Lactate (0.4-2.0) mmol/L Calcium 8.7 (8.6-10.3) mg/dl Magnesium 1.7 (1.7-2.4) mg/dl Total Bilirubin 1.8 H (0.2-1.0) mg/dl AST 125 H (13-39) U/L ALT 41 (7-52) U/L Alkaline Phosphatase 264 H (34-104) U/L Total Protein 7.3 (6.0-8.3) gm/dl Albumin 2.8 L (3.4-5.0) gm/dl Globulin 4.5 H (2.5-4.0) gm/dl Albumin/Globulin Ratio 0.6 L (0.9-2) Lipase 18 (11-82) U/L Urine Color Yellow Urine Appearance Clear (Clear) Urine pH 6.0 (4.5-7.5) Ur Specific [place] <= 1.005 (1.000-1.030) Urine Protein Negative (Negative) Urine Glucose (UA) Negative (Negative) Urine Ketones Negative (Negative) Urine Blood Negative (Negative) Urine Nitrite Negative (Negative) Urine Bilirubin Negative (Negative) Urine Urobilinogen Negative (Negative) Ur Leukocyte Esterase Negative (Negative) POC Ur Test NEG (NEG) Urine Comment Ethyl Alcohol mg/dL (<10.0) mg/dl Blood Type Antibody Screen PG Care Time/CCT Total # of Minutes Spent Total Time Spent with Patient: Total time spent is greater than 50% in coordination of care (as documented) at patient's floor/unit and/or counseling patient: Coding Level of Care Code 80754 IN/OBS CONSULT LVL 4,60M Diagnoses Cirrhosis K74.60 Crohn disease K50.90
[2024-12-19] MEDS: ALBUMIN 25% 25 GM/100 ML VIAL IV SCH (08:45)
[2024-12-19] MEDS: POTASSIUM CHLORIDE / WTR 10 MEQ/100 ML PLCT IV SCH (08:46)
--- NOTE | 2024-12-19 09:59 | Electrocardiogram Report ---
Test Reason : Blood Pressure : */* mmHG Vent. Rate : 106 BPM Atrial Rate : 106 BPM P-R Int : 138 ms QRS Dur : 92 ms QT Int : 392 ms P-R-T Axes : 52 62 89 degrees QTcB Int : 520 ms Sinus tachycardia Nonspecific T wave abnormality Abnormal ECG No previous ECGs available Confirmed by Hunter Prater [id number]) on 12/19/2024 9:58:57 AM Referred By: REFERRED SELF Confirmed By: Hunter Prater
[2024-12-19] MEDS: POTASSIUM CHLORIDE CRTAB 20 MEQ TABCR PO SCH (10:34)
[2024-12-19] MEDS: DEXTROAMPHETAMINE/AMPHETAMINE IR 10 MG TAB PO SCH (10:34)
[2024-12-19] MEDS: DEXTROAMPHETAMINE/AMPHETAMINE IR 20 MG TAB PO SCH (10:34)
[2024-12-19] MEDS: FOLIC ACID 1 MG TAB PO SCH (10:35)
[2024-12-19] MEDS: MULTIVITAMIN TAB PO SCH (10:35)
[2024-12-19 12:37] LABS: Albumin Peritoneal Fluid < 1.5 gm/dl
--- NOTE | 2024-12-19 12:56 | Ultrasound Report ---
ULTRASOUND-GUIDED PARACENTESIS CLINICAL HISTORY: Ascites PROCEDURE: Procedure and risks were explained. Informed consent was obtained. A final timeout was com pleted. The abdomen was prepped and draped in sterile fashion. 1% lidocaine was utilized for skin ane sthesia. Utilizing ultrasound guidance, a 5 Amharic safety centesis catheter was advanced into the left lower q uadrant pocket of ascites. Ultrasound images were obtained. 5 L of ascites fluid was removed, with 1 L sent for lab for analysis. The catheter was removed and Band-Aid applied. The patient tolerated the procedure well. Vital signs will be monitored postprocedure. IMPRESSION: Ultrasound-guided paracentesis as above. Performed, dictated, and signed by Steve Alvarado PA-C; to be co-signed by Dr. Nayan Marsh. Electronically signed by: Nayan Marsh M.D. 12/19/2024 4:17 PM
[2024-12-19 13:23] LABS: Hematocrit (blood only) 27.4 % (37.0-47.0); Hemoglobin 9.6 g/dl (12.0-16.0)
[2024-12-19 13:43] LABS: Magnesium 1.9 mg/dl (1.7-2.4); Potassium 3.1 mmol/L (3.5-5.1)
--- NOTE | 2024-12-19 14:10 | Communication Note ---
Date of Service: December 19, 2024 Patient is seen and examined at bedside. States having headache and some abdominal cramping. Had paracentesis earlier today. Denies any rectal bleed today. No other complaints today. On exam patient is moderately built and nourished, no apparent distress, normocephalic atraumatic, EOMI, decreased breath sounds, clear to auscultation, S1-S2, tachycardia, no murmur, abdomen mildly distended, mild generalized tenderness, alert, awake, oriented, grossly no focal deficits. Decompensated cirrhosis Ascites s/p diagnostic and therapeutic paracentesis Rule out SBP Rectal bleed thought to be secondary to Crohn's disease (reports intolerance to prior therapies) Hypokalemia Alcohol use disorder--last drink 1 week ago per patient Chronic left adnexal (ovarian) cyst--patient aware Sinus tachycardia ADHD Appreciate GI input Continue IV albumin-pre-/post paracentesis Follow-up ascitic fluid studies Replete electrolytes as needed Continue Aldactone Monitor for alcohol withdrawal Empirically on IV Rocephin Stool studies pending Monitor H&H and transfuse as needed Monitor LFTs Continue thiamine Avoid hepatotoxic agents as able Low-sodium diet
[2024-12-19 14:18] LABS: Appearance Peritoneal Fluid Clear; Color Peritoneal Fluid Pale Yellow; Lymphocytes, Fluid 5 %; Mono,Macrophage,Mesothelial 70 %; Neutrophils, Fluid 25 %; RBC Peritoneal Fluid Auto < 2000 /uL; WBC Peritoneal Fluid Auto 167 /ul (0-300)
[2024-12-19] MEDS: SPIRONOLACTONE 25 MG TAB PO SCH (16:27)
[2024-12-19] MEDS ORDERED: SPIRONOLACTONE 25 MG TAB PO SCH (16:30)
[2024-12-19] MEDS: LORazepam 0.5 MG TAB PO PRN (20:47)
[2024-12-19 20:53] LABS: Hematocrit (blood only) 28.3 % (37.0-47.0); Hemoglobin 10.1 g/dl (12.0-16.0)
[2024-12-19 21:10] LABS: Anion Gap 7 (3-11); Blood Urea Nitrogen < 2 mg/dl (6-23); Calcium 7.9 mg/dl (8.6-10.3); Carbon Dioxide 33 mmol/L (21-32); Chloride 99 mmol/L (98-107); Creatinine Clr Calc Pharmacy 131.8 ml/min; Glucose 82 mg/dl (70-99(Fasting)); Potassium 3.2 mmol/L (3.5-5.1); Sodium 139 mmol/L (136-145)
[2024-12-19] MEDS: cefTRIAXone SODIUM 2,000 MG/50 ML BAG IV SCH (23:00)
[2024-12-20 08:02] LABS: Hematocrit (blood only) 26.5 % (37.0-47.0); Hemoglobin 9.7 g/dl (12.0-16.0); Mean Corpuscular Hemoglobin 39.3 pg (25.0-34.0); Mean Corpuscular Volume 107.3 fL (80.0-100.0); Platelet Count 171 K/uL (130-400); RDW Standard Deviation 80.8 fL (36.4-46.3); Red Blood Count 2.47 M/uL (4.20-5.40); White Blood Count 7.14 K/ul (4.8-10.8)
[2024-12-20 08:27] LABS: Alanine Aminotransferase 16 U/L (7-52); Albumin Globulin Ratio 1.3 (0.9-2); Alkaline Phosphatase 114 U/L (34-104); Anion Gap 5 (3-11); Bilirubin,Total 1.8 mg/dl (0.2-1.0); Blood Urea Nitrogen < 2 mg/dl (6-23); Calcium 7.9 mg/dl (8.6-10.3); Carbon Dioxide 32 mmol/L (21-32); Chloride 102 mmol/L (98-107); Creatinine Clr Calc Pharmacy 143.5 ml/min; Globulin 2.2 gm/dl (2.5-4.0); Glucose 72 mg/dl (70-99(Fasting)); Iron 72 mcg/dl (35-150); Magnesium 1.9 mg/dl (1.7-2.4); Potassium 3.3 mmol/L (3.5-5.1); Sodium 139 mmol/L (136-145); Total Protein 5.0 gm/dl (6.0-8.3); Transferrin < 95 mg/dl (200-360)
[2024-12-20 08:44] LABS: Ferritin 169.1 ng/ml (8-388)
[2024-12-20 08:49] LABS: Hemoglobin A1C 4.2 % (4.5-5.6)
--- NOTE | 2024-12-20 09:06 | Gastroenterology Progress Note ---
Date of Service December 20, 2024 Assessment & Plan (1) Cirrhosis: Plan: 39 year old female with history of Crohn's followed by [facility] GI, ETOH induced liver disease followed by [facility] Hepatology, ADHD, HTN, pancreatitis, depression, alcohol use disorder recently admitted at [facility] admitted through the ED w/ decompensated cirrhosis and LGIB. She endorses chronic abd pain, change in bowel habits in September w/ mucous in stools mixed w/ BRB. EGD in November w/ portal hypertensive gastropathy, small non-bleeding gastric ulcer. Colon in 2021 w/ evidence of crohn's disease w/ colonic involvement Cirrhosis - MELD 11 - Ascites - S/P 5L off 12/19 - No signs of SBP - Increase Aldactone 50 mg once daily - Monitor K - If able to introduce low dose Lasix again, recommend trial while hospitalized - Follow up with [facility] Hepatology - MELD labs every 6 months - ABD imaging w/ AFP every 6 months - EGD every 1-2 years - No ETOH - No NSAIDs - Avoid hepatotoxin - Low NA diet, less than 2G daily - Discussed in detail - She verbalized concerns as she frequently consumes pickles - Less than 2G acetaminophen containing products daily Crohn's disease, change in bowel habits, mucous in stools w/ rectal bleeding - Trend H&H - Check iron studies, ferritin - If deficient, start iron therapy - She was recently referred to an IBD specialist - Recommend stool PCR, c.diff - Fecal calprotectin - Has failed Mesalamine, Imuran, Humira, Avsola I spent a total of 40 minutes on the date of service in review of patient's record, and previously obtained information in person and appropriate medical visit, discussion and education of plan, with patient and/or caregiver, placing orders for tests/referral/procedures as medically necessary and documentation of pertinent clinical information in patient's medical records for their visit today. (2) Crohn disease: Admission and Anticipated Discharge Date Admission Date: December 19, 2024 Supervising Physician Co-Signing Physician Notes I personally saw and examined the patient. I have reviewed the chart and agree with the documentation provided by the [employer] SUPERVISOR including discussion about the assessment, treatment and plan. Briefly, post paracentesis feels better. Her cramping pain is better. She is no longer going to the bathroom 10 times a day. In fact she has not had a bowel movement here no SBP noted. I would continue her Aldactone at 50 and can restart Lasix at 20 mg as long as her blood pressure tolerates. No acute role for steroids as she is relatively asymptomatic while in house for her crohns. GI will sign off please call with any question Subjective Tolerating liquid diet. No BMs since admission. Feeling improved s/p paracentesis. No SBP on prelim fluid studies. No fever, chills, CP, SOB. Only concern this AM is poor sleep last evening. Review of Systems Review of Systems: All other findings negative except as noted in HPI. Physical Exam Constitutional: WD/WN, vitals as above Respiratory: normal respiratory effort, lungs clear to auscultation Cardiovascular: Rate/Rhythm: regular rate Gastrointestinal (Abdomen): normal bowel sounds, soft, nontender, no hepatosplenomegaly Skin: no rashes, warm and dry Results & Data Results & Data Vital Signs (Past 12 Hours) Vital Signs Temp Pulse Resp BP Pulse Ox O2 Del Method 12/20/24 07:00 97.7 F 45 L 18 172/74 H 96 Room Air 12/20/24 03:24 97.9 F 97 H 18 102/65 94 Room Air 12/19/24 23:14 98.1 F 99 H 18 112/74 94 Room Air Laboratory Results 12/20/24 12/19/24 12/19/24 Range/Units 07:03 Unknown 20:37 WBC 7.14 (4.8-10.8) K/ul RBC 2.47 L (4.20-5.40) M/uL Hgb 9.7 L 10.1 L (12.0-16.0) g/dl Hct 26.5 L 28.3 L (37.0-47.0) % MCV 107.3 H (80.0-100.0) fL MCH 39.3 H (25.0-34.0) pg MCHC 36.6 H (32.0-36.0) g/dL RDW Std Deviation 80.8 H (36.4-46.3) fL RDW Coeff of Amanda 20.8 H (11.5-14.5) % Plt Count 171 (130-400) K/uL MPV 10.0 (9.4-12.4) fL Sodium 139 139 (136-145) mmol/L Potassium 3.3 L 3.2 L (3.5-5.1) mmol/L Chloride 102 99 (98-107) mmol/L Carbon Dioxide 32 33 H (21-32) mmol/L Anion Gap 5 7 (3-11) BUN < 2 L < 2 L (6-23) mg/dl Creatinine 0.45 L 0.49 L (0.6-1.2) mg/dl Est Cr Clr Drug Dosing 143.5 131.8 ml/min eGFR 124.65 122.11 BUN/Creatinine Ratio TNP TNP Glucose 72 82 (70-99(Fasting)) mg/dl Estimat Average Glucose 74 mg/dl Hemoglobin A1c 4.2 L (4.5-5.6) % Calcium 7.9 L 7.9 L (8.6-10.3) mg/dl Magnesium 1.9 (1.7-2.4) mg/dl Iron 72 (35-150) mcg/dl TIBC TNP Transferrin < 95 L (200-360) mg/dl Transferrin % Sat TNP Ferritin 169.1 (8-388) ng/ml Total Bilirubin 1.8 H (0.2-1.0) mg/dl AST 51 H (13-39) U/L ALT 16 (7-52) U/L Alkaline Phosphatase 114 H (34-104) U/L Total Protein 5.0 L (6.0-8.3) gm/dl Albumin 2.8 L (3.4-5.0) gm/dl Globulin 2.2 L (2.5-4.0) gm/dl Albumin/Globulin Ratio 1.3 (0.9-2) Fluid Neutrophils % 25 % Fluid Lymphocytes % 5 % Fluid Meso/Macro/Lucas % 70 % Fluid Comment Peritoneal Color Pale Yellow Peritoneal Appearance Clear Peritoneal WBC (Auto) 167 (0-300) /ul Peritoneal RBC (Auto) < 2000 /uL Peritoneal Tot Protein < 3.0 gm/dl Peritoneal Albumin < 1.5 gm/dl 12/19/24 Range/Units 12:54 WBC (4.8-10.8) K/ul RBC (4.20-5.40) M/uL Hgb 9.6 L (12.0-16.0) g/dl Hct 27.4 L (37.0-47.0) % MCV (80.0-100.0) fL MCH (25.0-34.0) pg MCHC (32.0-36.0) g/dL RDW Std Deviation (36.4-46.3) fL RDW Coeff of Amanda (11.5-14.5) % Plt Count (130-400) K/uL MPV (9.4-12.4) fL Sodium (136-145) mmol/L Potassium 3.1 L (3.5-5.1) mmol/L Chloride (98-107) mmol/L Carbon Dioxide (21-32) mmol/L Anion Gap (3-11) BUN (6-23) mg/dl Creatinine (0.6-1.2) mg/dl Est Cr Clr Drug Dosing ml/min eGFR BUN/Creatinine Ratio Glucose (70-99(Fasting)) mg/dl Estimat Average Glucose mg/dl Hemoglobin A1c (4.5-5.6) % Calcium (8.6-10.3) mg/dl Magnesium 1.9 (1.7-2.4) mg/dl Iron (35-150) mcg/dl TIBC Transferrin (200-360) mg/dl Transferrin % Sat Ferritin (8-388) ng/ml Total Bilirubin (0.2-1.0) mg/dl AST (13-39) U/L ALT (7-52) U/L Alkaline Phosphatase (34-104) U/L Total Protein (6.0-8.3) gm/dl Albumin (3.4-5.0) gm/dl Globulin (2.5-4.0) gm/dl Albumin/Globulin Ratio (0.9-2) Fluid Neutrophils % % Fluid Lymphocytes % % Fluid Meso/Macro/Luc[place] % % Fluid Comment Peritoneal Color Peritoneal Appearance Peritoneal WBC (Auto) (0-300) /ul Peritoneal RBC (Auto) /uL Peritoneal Tot Protein gm/dl Peritoneal Albumin gm/dl PG Care Time/CCT Total # of Minutes Spent Total Time Spent with Patient: Total time spent is greater than 50% in coordination of care (as documented) at patient's floor/unit and/or counseling patient: Coding Level of Care Code 69130 SUB INP/OBS CARE 2/35MIN Diagnoses Cirrhosis K74.60 Crohn disease K50.90
--- NOTE | 2024-12-20 10:01 | Hospitalist Progress Note ---
Date of Service December 20, 2024 Assessment & Plan (1) Abdominal pain: Plan: Abdominal pain Multifactorial Poss. SBP, possible sepsis, history alcoholic cirrhosis with some decompensation bloody diarrhea rule out C. difficile Hx of Crohn's disease Admitted to PCU given potential for alcohol withdrawal and possible need for phenobarbital protocol SUDHEER S, DT precautions Ascites s/p diagnostic and therapeutic paracentesis (5 L removed not c/w SBP at this time) CS, ceftriaxone, albumin for possible SBP Monitor lactic acid response to albumin -> down to 1.8 Stool cultures, stool C. difficile -pending Hx Crohn's colitis, has not been seen on follow-up by [facility] specialist this year GI consult re: decompensated cirrhosis, LGIB Per GI - Crohn's diagnosed in 2018. Previously on Mesalamine, Imuran ( stopped due to pancreatitis), Humira for 9 months ( stopped due to Ab) in 2020, Avsola caused problems with liver test and high blood [id number]. Last colonoscopy in 2021 w/ active disease. Has been treated periodically w/ steroids. She is not on any maintenance therapy. Mild to moderate Crohn's flare complicated by mucoid diarrhea frequency and some urgency. Unable to tolerate mesalamine Imuran and Humira and Avsola. Check stool cultures and tap ascites. As long as the cultures are negative, we can start a prednisone taper with 40 mg p.o. every morning prednisone Follow H&H, transfuse PRBC if hemoglobin less than 7 and or for symptomatic anemia Hypokalemia secondary to diarrhea - replace and monitor Hyperglycemia rule out DM, current hemoglobin A1c 4.2% ADHD, mood disorder, at baseline alcohol abuse Incidental finding of left adnexal cyst, Outpatient ANIMATION DIRECTOR follow-up for left adnexal cyst, patient aware ongoing tobacco abuse, Nicotine patch as needed DVT prophylaxis. SCDs Re: GI bleed Full code Admission and Anticipated Discharge Date Admission Date: December 19, 2024 Subjective Pt seen in follow up hx of Crohn's disease, now also presents w/ ascites s/p paracentesis 5 L yesterday GI consulted and following Currently pt is lying in bed, feels frustrated, continues to have abd. discomfort. No BM. Says she had mucous BM yesterday. Stool studies pending No fevers, chills, no blood per rectum now, had prior to admission No chest pain, no shortness of breath Review of Systems Review of Systems: All systems reviewed & are unremarkable except as noted in Subjective Physical Exam Physical Exam: GENERAL: slim adult F in NAD but slightly anxious SKIN: Normal color, warm HEENT: NC/AT NECK : Supple CHEST : Decreased breath sounds, no tenderness HEART : Tachycardic, no obvious murmurs ABDOMEN: soft, abdominal distention, mild abdominal tenderness to palpation EXTREMITIES : No LE swelling, moves extremities NEUROLOGIC : Coherent, no facial asymmetry, answers appropriately, speech fluent, moves extremities Results & Data Results & Data Vital Signs (Past 12 Hours) Vital Signs Temp Pulse Resp BP Pulse Ox O2 Del Method 12/20/24 07:00 36.5 C 45 L 18 172/74 H 96 Room Air 12/20/24 03:24 36.6 C 97 H 18 102/65 94 Room Air 12/19/24 23:14 36.7 C 99 H 18 112/74 94 Room Air Laboratory Results 12/20/24 12/19/24 12/19/24 Range/Units 07:03 Unknown 20:37 WBC 7.14 (4.8-10.8) K/ul RBC 2.47 L (4.20-5.40) M/uL Hgb 9.7 L 10.1 L (12.0-16.0) g/dl Hct 26.5 L 28.3 L (37.0-47.0) % MCV 107.3 H (80.0-100.0) fL MCH 39.3 H (25.0-34.0) pg MCHC 36.6 H (32.0-36.0) g/dL RDW Std Deviation 80.8 H (36.4-46.3) fL RDW Coeff of Amanda 20.8 H (11.5-14.5) % Plt Count 171 (130-400) K/uL MPV 10.0 (9.4-12.4) fL Sodium 139 139 (136-145) mmol/L Potassium 3.3 L 3.2 L (3.5-5.1) mmol/L Chloride 102 99 (98-107) mmol/L Carbon Dioxide 32 33 H (21-32) mmol/L Anion Gap 5 7 (3-11) BUN < 2 L < 2 L (6-23) mg/dl Creatinine 0.45 L 0.49 L (0.6-1.2) mg/dl Est Cr Clr Drug Dosing 143.5 131.8 ml/min eGFR 124.65 122.11 BUN/Creatinine Ratio TNP TNP Glucose 72 82 (70-99(Fasting)) mg/dl Estimat Average Glucose 74 mg/dl Hemoglobin A1c 4.2 L (4.5-5.6) % Calcium 7.9 L 7.9 L (8.6-10.3) mg/dl Magnesium 1.9 (1.7-2.4) mg/dl Iron 72 (35-150) mcg/dl TIBC TNP Transferrin < 95 L (200-360) mg/dl Transferrin % Sat TNP Ferritin 169.1 (8-388) ng/ml Total Bilirubin 1.8 H (0.2-1.0) mg/dl AST 51 H (13-39) U/L ALT 16 (7-52) U/L Alkaline Phosphatase 114 H (34-104) U/L Total Protein 5.0 L (6.0-8.3) gm/dl Albumin 2.8 L (3.4-5.0) gm/dl Globulin 2.2 L (2.5-4.0) gm/dl Albumin/Globulin Ratio 1.3 (0.9-2) Fluid Neutrophils % 25 % Fluid Lymphocytes % 5 % Fluid Meso/Macro/Rush % 70 % Fluid Comment Peritoneal Color Pale Yellow Peritoneal Appearance Clear Peritoneal WBC (Auto) 167 (0-300) /ul Peritoneal RBC (Auto) < 2000 /uL Peritoneal Tot Protein < 3.0 gm/dl Peritoneal Albumin < 1.5 gm/dl 12/19/24 Range/Units 12:54 WBC (4.8-10.8) K/ul RBC (4.20-5.40) M/uL Hgb 9.6 L (12.0-16.0) g/dl Hct 27.4 L (37.0-47.0) % MCV (80.0-100.0) fL MCH (25.0-34.0) pg MCHC (32.0-36.0) g/dL RDW Std Deviation (36.4-46.3) fL RDW Coeff of Amanda (11.5-14.5) % Plt Count (130-400) K/uL MPV (9.4-12.4) fL Sodium (136-145) mmol/L Potassium 3.1 L (3.5-5.1) mmol/L Chloride (98-107) mmol/L Carbon Dioxide (21-32) mmol/L Anion Gap (3-11) BUN (6-23) mg/dl Creatinine (0.6-1.2) mg/dl Est Cr Clr Drug Dosing ml/min eGFR BUN/Creatinine Ratio Glucose (70-99(Fasting)) mg/dl Estimat Average Glucose mg/dl Hemoglobin A1c (4.5-5.6) % Calcium (8.6-10.3) mg/dl Magnesium 1.9 (1.7-2.4) mg/dl Iron (35-150) mcg/dl TIBC Transferrin (200-360) mg/dl Transferrin % Sat Ferritin (8-388) ng/ml Total Bilirubin (0.2-1.0) mg/dl AST (13-39) U/L ALT (7-52) U/L Alkaline Phosphatase (34-104) U/L Total Protein (6.0-8.3) gm/dl Albumin (3.4-5.0) gm/dl Globulin (2.5-4.0) gm/dl Albumin/Globulin Ratio (0.9-2) Fluid Neutrophils % % Fluid Lymphocytes % % Fluid Meso/Macro/Rush % % Fluid Comment Peritoneal Color Peritoneal Appearance Peritoneal WBC (Auto) (0-300) /ul Peritoneal RBC (Auto) /uL Peritoneal Tot Protein gm/dl Peritoneal Albumin gm/dl Medications Administered Current Inpatient Medications Amphetamine/Dextroamphetamine (Dextroamphetamine/Amphetamine Ir 10 Mg Tab) 10 mg PO BID MARTITA Stop: 01/02/25 08:59 Last Admin: 12/19/24 20:50 Dose: Not Given Amphetamine/Dextroamphetamine (Dextroamphetamine/Amphetamine Ir 20 Mg Tab) 20 mg PO BID MARTITA Stop: 01/02/25 08:59 Last Admin: 12/19/24 20:50 Dose: Not Given Folic Acid (Folic Acid 1 Mg Tab) 1 mg PO QAM MARTITA Stop: 01/18/25 08:59 Last Admin: 12/19/24 10:35 Dose: 1 mg Ceftriaxone Sodium (Rocephin) 2,000 mg in 50 mls @ 100 mls/hr IV Q24H [facility]ITA Stop: 12/29/24 23:29 Last Infusion: 12/19/24 23:35 Dose: Infused Promethazine HCl (Phenergan) 6.25 mg in 50.25 mls @ 201 mls/hr IV Q6H PRN PRN Reason: Nausea And Vomiting Stop: 01/18/25 02:42 Lorazepam (Lorazepam 0.5 Mg Tab) 0.5 mg PO TID PRN PRN Reason: Anxiety Stop: 01/18/25 02:42 Last Admin: 12/19/24 20:47 Dose: 0.5 mg Lorazepam (Lorazepam 2 Mg/1 Ml Vial) 1 mg IV ONE PRN; Protocol PRN Reason: EtoH Withdrawal AWSS 6-10 Multivitamins (Multivitamin Tab) 1 tab PO QAM [facility] Stop: 01/18/25 08:59 Last Admin: 12/19/24 10:35 Dose: 1 tab Oxycodone HCl (Oxycodone Hcl Ir 5 Mg Tab (Immediate Release)) 5 mg PO Q4H PRN PRN Reason: Pain Stop: 01/02/25 02:39 Last Admin: 12/19/24 16:26 Dose: 5 mg Pantoprazole Sodium (Pantoprazole 40 Mg Tab) 40 mg PO DAILYBB [facility] Stop: 01/18/25 06:29 Last Admin: 12/20/24 06:31 Dose: 40 mg Potassium Chloride (Potassium Chloride Crtab 20 Meq Tabcr) 20 meq PO BID MARTITA Stop: 01/18/25 08:59 Last Admin: 12/19/24 20:46 Dose: 20 meq Spironolactone (Spironolactone 25 Mg Tab) 50 mg PO QDD MARTITA Stop: 01/18/25 16:29 Last Admin: 12/19/24 16:27 Dose: 50 mg Thiamine HCl (Thiamine Hcl 100 Mg Tab) 100 mg PO QAM [facility] Stop: 01/19/25 08:59
[2024-12-20] MEDS: THIAMINE HCL 100 MG TAB PO SCH (10:02)
[2024-12-20] MEDS ORDERED: Nursing to Pharmacy Communication SCH (17:30)
[2024-12-20] MEDS: GABAPENTIN 100 MG CAP PO STA (17:41)
[2024-12-21 07:06] LABS: Hematocrit (blood only) 27.6 % (37.0-47.0); Hemoglobin 9.6 g/dl (12.0-16.0); Mean Corpuscular Hemoglobin 38.1 pg (25.0-34.0); Mean Corpuscular Volume 109.5 fL (80.0-100.0); Platelet Count 182 K/uL (130-400); RDW Standard Deviation 82.7 fL (36.4-46.3); Red Blood Count 2.52 M/uL (4.20-5.40); White Blood Count 7.33 K/ul (4.8-10.8)
[2024-12-21] MEDS: DEXTROAMPHETAMINE/AMPHETAMINE IR 20 MG TAB PO SCH (07:32)
[2024-12-21] MEDS: DEXTROAMPHETAMINE/AMPHETAMINE IR 10 MG TAB PO SCH (07:32)
[2024-12-21 07:39] LABS: Anion Gap 4 (3-11); Blood Urea Nitrogen < 2 mg/dl (6-23); Calcium 7.8 mg/dl (8.6-10.3); Carbon Dioxide 31 mmol/L (21-32); Chloride 106 mmol/L (98-107); Creatinine Clr Calc Pharmacy 126.6 ml/min; Glucose 82 mg/dl (70-99(Fasting)); Magnesium 1.7 mg/dl (1.7-2.4); Potassium 3.6 mmol/L (3.5-5.1); Sodium 141 mmol/L (136-145)
--- NOTE | 2024-12-21 10:12 | Gastroenterology Progress Note ---
Date of Service December 21, 2024 Assessment & Plan (1) Cirrhosis: Plan: 39 year old female with history of Crohn's followed by [facility] GI, ETOH induced liver disease followed by [facility] Hepatology, ADHD, HTN, pancreatitis, depression, alcohol use disorder recently admitted at [facility] admitted through the ED w/ decompensated cirrhosis and LGIB. She endorses chronic abd pain, change in bowel habits in September w/ mucous in stools mixed w/ BRB. EGD in November w/ portal hypertensive gastropathy, small non-bleeding gastric ulcer. Colon in 2021 w/ evidence of crohn's disease w/ colonic involvement Cirrhosis - MELD 11 - Ascites - S/P 5L off 12/19 - No signs of SBP - Increase Aldactone 50 mg once daily - Monitor K - If able to introduce low dose Lasix again, recommend trial while hospitalized - Follow up with [facility] Hepatology - MELD labs every 6 months - ABD imaging w/ AFP every 6 months - EGD every 1-2 years - No ETOH - No NSAIDs - Avoid hepatotoxin - Low NA diet, less than 2G daily - Discussed in detail - She verbalized concerns as she frequently consumes pickles - Less than 2G acetaminophen containing products daily Crohn's disease, change in bowel habits, mucous in stools w/ rectal bleeding - Trend H&H - Check iron studies, ferritin - If deficient, start iron therapy - Recommend stool PCR, c.diff - Fecal calprotectin - If elevated and no infectious etiology, steroid taper - Miralax 1 capful daily - She was recently referred to an IBD specialist - Has failed Mesalamine, Imuran, Humira, Avsola - OP colonoscopy w/ her new IBD specialist so they can plan her care moving forward Recall GI as needed. I spent a total of 40 minutes on the date of service in review of patient's record, and previously obtained information in person and appropriate medical visit, discussion and education of plan, with patient and/or caregiver, placing orders for tests/referral/procedures as medically necessary and documentation of pertinent clinical information in patient's medical records for their visit today. (2) Crohn disease: Admission and Anticipated Discharge Date Admission Date: December 19, 2024 Supervising Physician Co-Signing Physician Notes I personally saw and examined the patient. I have reviewed the chart and agree with the documentation provided by the VIAL GAUGER including discussion about the assessment, treatment and plan. No infection noted and her diarrhea is dissipated. I would treat her symptomatically with dicyclomine if her cramping returns. GI will sign off rest of the note as above please call us with any questions Subjective Pt was seen and evaluated, chart reviewed. Only concerns this AM is headache, poor sleep. She notes her abd pain is improved s/p paracentesis. She does get some abd cramping. She has not had a BM since admission. Review of Systems Review of Systems: All other findings negative except as noted in HPI. Physical Exam Constitutional: WD/WN, vitals as above Respiratory: normal respiratory effort Cardiovascular: Rate/Rhythm: regular rate Gastrointestinal (Abdomen): normal bowel sounds, soft, nontender, no hepatosplenomegaly Skin: no rashes, warm and dry Results & Data Results & Data Vital Signs (Past 12 Hours) Vital Signs Temp Pulse Pulse Resp BP Pulse Ox O2 Del Method 12/21/24 09:23 Room Air 12/21/24 07:34 97.7 F 61 20 177/85 H 96 Room Air 12/21/24 07:06 108 H 12/21/24 06:26 98.8 F 102 H 18 107/70 96 Room Air Laboratory Results 12/21/24 Range/Units 06:33 WBC 7.33 (4.8-10.8) K/ul RBC 2.52 L (4.20-5.40) M/uL Hgb 9.6 L (12.0-16.0) g/dl Hct 27.6 L (37.0-47.0) % MCV 109.5 H (80.0-100.0) fL MCH 38.1 H (25.0-34.0) pg MCHC 34.8 (32.0-36.0) g/dL RDW Std Deviation 82.7 H (36.4-46.3) fL RDW Coeff of Amanda 21.1 H (11.5-14.5) % Plt Count 182 (130-400) K/uL MPV 9.7 (9.4-12.4) fL Sodium 141 (136-145) mmol/L Potassium 3.6 (3.5-5.1) mmol/L Chloride 106 (98-107) mmol/L Carbon Dioxide 31 (21-32) mmol/L Anion Gap 4 (3-11) BUN < 2 L (6-23) mg/dl Creatinine 0.51 L (0.6-1.2) mg/dl Est Cr Clr Drug Dosing 126.6 ml/min eGFR 120.94 BUN/Creatinine Ratio TNP Glucose 82 (70-99(Fasting)) mg/dl Calcium 7.8 L (8.6-10.3) mg/dl Phosphorus 2.7 (2.5-4.9) mg/dl Magnesium 1.7 (1.7-2.4) mg/dl PG Care Time/CCT Total # of Minutes Spent Total Time Spent with Patient: Total time spent is greater than 50% in coordination of care (as documented) at patient's floor/unit and/or counseling patient: Coding Level of Care Code 59636 SUB INP/OBS CARE 2MIN Diagnoses Cirrhosis K74.60 Crohn disease K50.90
[2024-12-21 11:43] VITALS: O2SAT 93
[2024-12-21] MEDS: MAGNESIUM SULFATE / D5W 1 GM/100 ML BAG IV ONE (11:43)
--- NOTE | 2024-12-21 12:26 | Hospitalist Progress Note ---
Date of Service December 21, 2024 Assessment & Plan (1) Abdominal pain: Plan: Abdominal pain Multifactorial Poss. SBP, possible sepsis, history alcoholic cirrhosis with some decompensation bloody diarrhea rule out C. difficile Hx of Crohn's disease Admitted to PCU given potential for alcohol withdrawal and possible need for phenobarbital protocol SUDHEER S, DT precautions Ascites s/p diagnostic and therapeutic paracentesis (5 L removed not c/w SBP at this time) CS, ceftriaxone, albumin for possible SBP Monitor lactic acid response to albumin -> down to 1.8 Stool cultures, stool C. difficile -pending Hx Crohn's colitis, has not been seen on follow-up by [facility] specialist this year GI consult re: decompensated cirrhosis, LGIB Per GI - Crohn's diagnosed in 2018. Previously on Mesalamine, Imuran ( stopped due to pancreatitis), Humira for 9 months ( stopped due to Ab) in 2020, Avsola caused problems with liver test and high blood [id number]. Last colonoscopy in 2021 w/ active disease. Has been treated periodically w/ steroids. She is not on any maintenance therapy. Mild to moderate Crohn's flare complicated by mucoid diarrhea frequency and some urgency. Unable to tolerate mesalamine Imuran and Humira and Avsola. Check stool cultures and tap ascites. As long as the cultures are negative, we can start a prednisone taper with 40 mg p.o. every morning prednisone Pt did not have a BM since admitted. 12/11o per GI - I would continue her Aldactone at 50 and can restart Lasix at 20 mg as long as her blood pressure tolerates. No acute role for steroids as she is relatively asymptomatic while in house for her Crohns. 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 SCDs Re: GI bleed Full code Admission and Anticipated Discharge Date Admission Date: December 19, 2024 Subjective Pt seen in follow up hx of Crohn's disease, now also presents w/ ascites s/p paracentesis 5 L GI consulted and following Currently pt is lying in bed, says she feels flushed, vital obtained, nursing staff at the bedside, abd. discomfort improved. No BM. no blood per rectum now, had prior to admission No chest pain, no shortness of breath Review of Systems Review of Systems: All systems reviewed & are unremarkable except as noted in Subjective Physical Exam Physical Exam: GENERAL: slim adult F in NAD but slightly anxious SKIN: Normal color, warm HEENT: NC/AT NECK : Supple CHEST : Decreased breath sounds, no tenderness HEART : Tachycardic, no obvious murmurs ABDOMEN: soft, abdominal distention, mild abdominal tenderness to palpation EXTREMITIES : No LE swelling, moves extremities NEUROLOGIC : Coherent, no facial asymmetry, answers appropriately, speech fluent, moves extremities Results & Data Results & Data Vital Signs (Past 12 Hours) Vital Signs Temp Pulse Pulse Resp BP Pulse Ox O2 Del Method 12/21/24 11:25 37.2 C 103 H 19 106/73 93 Room Air 12/21/24 09:23 Room Air 12/21/24 07:34 36.5 C 61 20 177/85 H 96 Room Air 12/21/24 07:06 108 H 12/21/24 06:26 37.1 C 102 H 18 107/70 96 Room Air Laboratory Results 12/21/24 Range/Units 06:33 WBC 7.33 (4.8-10.8) K/ul RBC 2.52 L (4.20-5.40) M/uL Hgb 9.6 L (12.0-16.0) g/dl Hct 27.6 L (37.0-47.0) % MCV 109.5 H (80.0-100.0) fL MCH 38.1 H (25.0-34.0) pg MCHC 34.8 (32.0-36.0) g/dL RDW Std Deviation 82.7 H (36.4-46.3) fL RDW Coeff of Amanda 21.1 H (11.5-14.5) % Plt Count 182 (130-400) K/uL MPV 9.7 (9.4-12.4) fL Sodium 141 (136-145) mmol/L Potassium 3.6 (3.5-5.1) mmol/L Chloride 106 (98-107) mmol/L Carbon Dioxide 31 (21-32) mmol/L Anion Gap 4 (3-11) BUN < 2 L (6-23) mg/dl Creatinine 0.51 L (0.6-1.2) mg/dl Est Cr Clr Drug Dosing 126.6 ml/min eGFR 120.94 BUN/Creatinine Ratio TNP Glucose 82 (70-99(Fasting)) mg/dl Calcium 7.8 L (8.6-10.3) mg/dl Phosphorus 2.7 (2.5-4.9) mg/dl Magnesium 1.7 (1.7-2.4) mg/dl Medications Administered Current Inpatient Medications Amphetamine/Dextroamphetamine (Dextroamphetamine/Amphetamine Ir 10 Mg Tab) 10 mg PO BID@0900,1400 [facility] Stop: 01/04/25 08:59 Last Admin: 12/21/24 07:32 Dose: Not Given Amphetamine/Dextroamphetamine (Dextroamphetamine/Amphetamine Ir 20 Mg Tab) 20 mg PO BID@0900,1400 [facility] Stop: 01/04/25 08:59 Last Admin: 12/21/24 07:32 Dose: Not Given Folic Acid (Folic Acid 1 Mg Tab) 1 mg PO QAM [facility] Stop: 01/18/25 08:59 Last Admin: 12/21/24 08:13 Dose: 1 mg Gabapentin (Gabapentin 100 Mg Cap) 100 mg PO ONE ONE Stop: 12/21/24 12:46 Ceftriaxone Sodium (Rocephin) 2,000 mg in 50 mls @ 100 mls/hr IV Q24H [facility] Stop: 12/29/24 23:29 Last Infusion: 12/21/24 02:11 Dose: Infused Promethazine HCl (Phenergan) 6.25 mg in 50.25 mls @ 201 mls/hr IV Q6H PRN PRN Reason: Nausea And Vomiting Stop: 01/18/25 02:42 Magnesium Sulfate/Dextrose (Magnesium Sulfate / D5w) 1 gm in 100 mls @ 50 mls/hr IV ONE ONE Stop: 12/21/24 12:33 Last Admin: 12/21/24 11:43 Dose: 50 mls/hr Lorazepam (Lorazepam 0.5 Mg Tab) 0.5 mg PO TID PRN PRN Reason: Anxiety Stop: 01/18/25 02:42 Last Admin: 12/20/24 17:15 Dose: 0.5 mg Lorazepam (Lorazepam 2 Mg/1 Ml Vial) 1 mg IV ONE PRN; Protocol PRN Reason: EtoH Withdrawal AWSS 6-10 Multivitamins (Multivitamin Tab) 1 tab PO QAM [facility] Stop: 01/18/25 08:59 Last Admin: 12/21/24 08:13 Dose: 1 tab Oxycodone HCl (Oxycodone Hcl Ir 5 Mg Tab (Immediate Release)) 5 mg PO Q4H PRN PRN Reason: Pain Stop: 01/02/25 02:39 Last Admin: 12/19/24 16:26 Dose: 5 mg Pantoprazole Sodium (Pantoprazole 40 Mg Tab) 40 mg PO DAILYBB [facility] Stop: 01/18/25 06:29 Last Admin: 12/21/24 06:27 Dose: 40 mg Potassium Chloride (Potassium Chloride Crtab 20 Meq Tabcr) 20 meq PO BID [facility] Stop: 01/18/25 08:59 Last Admin: 12/21/24 08:14 Dose: 20 meq Spironolactone (Spironolactone 25 Mg Tab) 50 mg PO QDD [facility] Stop: 01/18/25 16:29 Last Admin: 12/20/24 17:15 Dose: 50 mg Thiamine HCl (Thiamine Hcl 100 Mg Tab) 100 mg PO QAM [facility] Stop: 01/19/25 08:59 Last Admin: 12/21/24 08:13 Dose: 100 mg
[2024-12-21] MEDS: GABAPENTIN 100 MG CAP PO ONE (13:49)
[2024-12-21 14:14] LABS: Cdiff Toxin B Gene (2yr or >) Negative Cdiff Gene (Neg)
[2024-12-21 14:46] LABS: Adenovirus F 40/41 PCR Not Detected (NotDetected); Campylobacter PCR Not Detected (NotDetected); Enteroaggregative E.coli(EAEC) Not Detected (NotDetected); Shiga-like Toxin E.coli (STEC) Not Detected (NotDetected); Vibrio species PCR Not Detected (NotDetected)
[2024-12-21 16:08] VITALS: RESP 17; TEMP 98.6
[2024-12-21 18:30] VITALS: BP 105/67; PULSE 106
--- NOTE | 2024-12-21 18:32 | Discharge Summary ---
Date of Service December 21, 2024 Admission HPI Per Admitting Provider History obtained from patient and records. Medical history significant for Crohn's colitis, alcoholic cirrhosis, pancreatitis, ADHD, mood disorder, alcohol abuse, ongoing tobacco abuse. Recent confinement last month at [facility] for ascites and GI bleed. EGD showed nonbleeding gastric ulcer and portal hypertensive gastropathy. Incomplete paracentesis as per patient. Patient discharged on spironolactone. Patient noncompliant with Lasix prescription due to low potassium concerns as per last PCP note. Patient consulted [facility] ER 2 weeks ago for persistent abdominal pain/distention following discharge from [facility]. CT abdomen pelvis showed enteritis, fatty liver, moderate ascites, and gallbladder distention. Questionable mild thickening of ascending colonic wall. Patient directed to [facility] ER for evaluation to rule out cholecystitis due to in availability of ultrasound at [facility]. Ultrasound showed cirrhotic liver with small volume ascites. No findings suggestive of acute cholecystitis. Patient discharged home. Worsening achy abdominal discomfort and distention since last week. No fever, no chills. Bloody diarrhea symptoms with bilious emesis. Antibiotic Rx during confinements at [facility] as per patient. Patient denies chest pain, SOB. No OTC NSAID intake. IV ceftriaxone administered at the ER. Medical History as above 2021 colonoscopy active colitis descending colon and sigmoid colon consistent with Crohn's disease. Surgical History : Appendectomy, oviduct fulguration, endometrial ablation, ectopic removal, oophorectomy, tonsillectomy, Family History : Asthma, RA Personal/Social history : Half pack daily, alcohol abuse as per records, currently unemployed Admission Exam Per Admitting Provider GENERAL: uncomfortable, slightly anxious, looks older than stated age, no respiratory distress SKIN: Normal color, warm HEENT: Free Soil palpebral conjunctivae, no ptosis, dry buccal mucosa NECK : Supple, no tenderness CHEST : Decreased breath sounds, no tenderness HEART : Tachycardic, no obvious murmurs ABDOMEN: Marked abdominal distention, central abdominal tenderness EXTREMITIES : No LE swelling/tenderness, palpable pulses, no other conspicuous deformities noted NEUROLOGIC : Coherent, no facial asymmetry, no other gross focality Principal Diagnosis Ascites s/ paracentesis Hypokalemia Abdominal pain Hx of Crohn's disease Discharge Exam GENERAL: slim adult F in NAD but slightly anxious SKIN: Normal color, warm HEENT: NC/AT NECK : Supple CHEST : Decreased breath sounds, no tenderness HEART : mildly tachycardic (HR 100), no obvious murmurs ABDOMEN: soft, mild abdominal distention, minimal abdominal tenderness to palpation EXTREMITIES : No LE swelling, moves extremities NEUROLOGIC : Coherent, no facial asymmetry, answers appropriately, speech fluent, moves extremities Discharge Data Allergies Allergy/AdvReac Type Severity Reaction Status Date / Time morphine Allergy Severe SHORT OF Verified 12/18/24 23:11 BREATH/HIVES latex Allergy Intermediate SKIN Verified 12/18/24 23:11 IRRITATION/RASH azathioprine [From Imuran] AdvReac Severe CAUSED Verified 12/18/24 23:13 PANCREATITIS Consultations 12/18/24 23:55 ED Decision to Admit Stat 12/19/24 02:41 Consult Gastroenterology Routine Ordered Studies 12/18/24 21:52 CT Abd and Pelvis [CT abd pelvis IV con only] Stat FINDINGS: Lung bases: No consolidation. ABDOMEN: Liver: The liver is enlarged, inhomogeneous and lobulated.. Gallbladder and bile ducts: Gallbladder is distended. No calcified stones. No ductal dilation. Pancreas: No mass. No ductal dilation. Spleen: No splenomegaly. Adrenals: No mass. Kidneys and ureters: No solid mass. No hydronephrosis. Stomach and bowel: There is a small hiatal hernia. The stomach is relatively decompressed. There is air and stool noted in the colon.. PELVIS: Appendix: The appendix is not visualized.. Bladder: Urinary bladder is distended. No bladder calculi are seen.. Reproductive: There is a 3 cm lucency in the left adnexa. ABDOMEN and PELVIS: Intraperitoneal space: No free air. There is a large amount of free fluid in the abdomen and pelvis.. Bones/joints: There are mild degenerative changes in the spine.. Soft tissues: Unremarkable. Vasculature: No abdominal aortic aneurysm. Lymph nodes: No enlarged lymph nodes. IMPRESSION: There is a large amount of ascites present. Liver is enlarged, inhomogeneous and lobulated. This may represent cirrhotic changes. Underlying lesions cannot be excluded on this exam. Further evaluation may be possible with the use of a nonemergent contrast- enhanced MRI. Gallbladder is distended. No calcified gallstones are seen. There is a small hiatal hernia. There is a possible 3 cm left adnexal cyst. 12/19/24 08:00 IR paracentesis abd w/img US Routine PROCEDURE: Procedure and risks were explained. Informed consent was obtained. A final timeout was completed. The abdomen was prepped and draped in sterile fashion. 1% lidocaine was utilized for skin anesthesia. Utilizing ultrasound guidance, a 5 Fijian safety centesis catheter was advanced into the left lower quadrant pocket of ascites. Ultrasound images were obtained. 5 L of ascites fluid was removed, with 1 L sent for lab for analysis. The catheter was removed and Band-Aid applied. The patient tolerated the procedure well. Vital signs will be monitored postprocedure. IMPRESSION: Ultrasound-guided paracentesis as above. Hospital Course (1) Abdominal pain: Abdominal pain Multifactorial Poss. SBP, possible sepsis, history alcoholic cirrhosis with some decompensation bloody diarrhea rule out C. difficile Hx of Crohn's disease Admitted to PCU given potential for alcohol withdrawal and possible need for phenobarbital protocol SUDHEER S, DT precautions Ascites s/p diagnostic and therapeutic paracentesis (5 L removed not c/w SBP at this time), cultx - NGTD CS, ceftriaxone, albumin for possible SBP Monitor lactic acid response to albumin -> down to 1.8 Stool cultures, stool C. difficile - negative Stool calprotectin - pending Hx Crohn's colitis, has not been seen on follow-up by [facility] specialist this year GI consult re: decompensated cirrhosis, LGIB Per GI - Crohn's diagnosed in 2018. Previously on Mesalamine, Imuran ( stopped due to pancreatitis), Humira for 9 months ( stopped due to Ab) in 2020, Avsola caused problems with liver test and high blood [id number]. Last colonoscopy in 2021 w/ active disease. Has been treated periodically w/ steroids. She is not on any maintenance therapy. Mild to moderate Crohn's flare complicated by mucoid diarrhea frequency and some urgency. Unable to tolerate mesalamine Imuran and Humira and Avsola. Check stool cultures and tap ascites. As long as the cultures are negative, we can start a prednisone taper with 40 mg p.o. every morning prednisone Pt did not have a BM since admitted. 12/20 per GI - I would continue her Aldactone at 50 and can restart Lasix at 20 mg as long as her blood pressure tolerates. No acute role for steroids as she is relatively asymptomatic while in house for her Crohns. 12/21 per GI - No infection noted and her diarrhea is dissipated. I would treat her symptomatically with dicyclomine if her cramping returns. Follow H&H, transfuse PRBC if hemoglobin less than 7 and or for symptomatic anemia Hgb stable, no need for blood transfusion Hypokalemia secondary to diarrhea - replace and monitor - will DC on K supplement - pt will need to re-check her K level as outpt Hyperglycemia rule out DM, current hemoglobin A1c 4.2% ADHD, mood disorder, at baseline alcohol abuse Incidental finding of left adnexal cyst, Outpatient [facility] follow-up for left adnexal cyst, patient aware ongoing tobacco abuse, Nicotine patch as needed Total Time Total Time Spent Total Time Spent (In Minutes): 40 Discharge Plan Discharge Items Patient Disposition: Home - Self-Care Reason For Visit: SEPSIS, POSS ETOH WITHDRAWAL Discharge Diagnosis: Ascites s/ paracentesis Hypokalemia Abdominal pain Hx of Crohn's disease Condition on Discharge: Good Activity: Per Instructions section Non-emergency contact: Primary Care Provider and Filler Room Attendant Call non-emergency contact if: you have any medication questions and your symptoms worsen Follow-up/Referrals: Monserrat Viera PA-C [Primary Care Provider] - (Date & Time 12/25/2024 9:20 AM Provider: Monserrat Viera PA-C [facility] ) Diet: Low Fiber and Low Sodium (2gm) Addtl Attending Provider Instructions: Follow up with your primary care physician and multimedia services coordinator. The appointment with your primary care provider was scheduled for you for for 12/25/2024. We are working on getting you appointment with GI. Your spironolactone was increased to 50 mg daily. It is recommended to add furosemide (lasix) in the future. Your potassium level was found low. Take potassium supplement as prescribed and have your potassium level re-checked before initiating lasix. It is recommended that you completely abstain from alcohol. Pending Studies at Discharge: Yes Studies:: stool calprotectin, peritoneal fluid cultx Stand-Alone Forms: My [employer], Smoking Cessation Medications and DC Order Prescriptions: New spironolactone 50 mg tablet 50 mg PO DAILY Qty: 30 0RF potassium chloride 20 mEq Tablet,Er Particles/Crystals 20 meq PO DAILY Qty: 20 0RF thiamine HCl (vitamin B1) 100 mg Tablet 100 mg PO QAM Qty: 30 0RF folic acid 1 mg Tablet 1 mg PO QAM Qty: 30 0RF Continued dextroamphetamine-amphetamine 30 mg tablet 30 mg PO BID esomeprazole magnesium 40 mg capsule,delayed release(DR/EC) 40 mg PO DAILYBB ondansetron 4 mg tablet,disintegrating 4 mg PO Q8H PRN (Reason: Nausea) Discontinued spironolactone 25 mg tablet 25 mg PO QDD Rx Instructions: TAKE WITH FOOD Discharge Orders: Discharge Order (Routine); Ordered 12/21/24 Ordered By: Deshawn Ramirez Admission Data Admit Date/Time: 12/19/24 02:09 Attending Provider: Deshawn Ramirez Admit Provider: Dallin Umana Primary Care Provider: Monserrat Viera Other Providers: Dallin Umana; Rachana Amin; Matheus Shannon; Priya Byrd; Monisha Priest; June Renee; Kalpana Meneses; Edgar Pastor; Sushma Estrada; Kirk Chatterjee; Walter An S; Rena Delgado; Katelin Wright; Helen Gomez; Daniela Montgomery; Selwyn Sher; Tal Nieto; J Luis Barkley; Bethany Cruz; Stacy Good Jr; Jovi Wetzel; Marlon Hodge; Conor Moore; Gideon Flores; Marysol Hernandez; Mick Douglas I; Aliya Lowery; Vishnu Lott; Kumar Palacios; Michael Horton; Alexsander Chi; Del,Desmond Mallory
== END 2024-12-21 18:51 | disposition home or self-care (01) | DRG 387 ==
LOC: ED 20:39 → EDINP 12-19 02:09 → SUATTDRO 12-19 02:09 → 2S 12-19 02:32
DX: F10.20 Alcohol dependence, uncomplicated; F90.9 Attention-deficit hyperactivity disorder, unspecified type; Z88.5 Allergy status to narcotic agent; F17.200 Nicotine dependence, unspecified, uncomplicated; Z91.040 Latex allergy status; K50.911 Crohn's disease, unspecified, with rectal bleeding; R73.9 Hyperglycemia, unspecified; E87.6 Hypokalemia; K70.31 Alcoholic cirrhosis of liver with ascites